=== PATIENT | male | born 1930 | race Caucasian/White ===

== ENCOUNTER 2018-06-27 23:47 | Inpatient (IN) | payer MEDICARE, OTHER ==
[2018-06-28] MEDS ORDERED: Digoxin 0.5 MG/2 ML AMP SLOW IVP PRN (00:55)
[2018-06-28 01:46] LABS: Troponin I 0.027 ng/mL (< 0.028)
[2018-06-28] MEDS ORDERED: Acetaminophen 325 MG TAB PO PRN ×2 (03:14→03:50)
[2018-06-28] MEDS ORDERED: Ondansetron ODT 4 MG TAB SL PRN (03:14)
[2018-06-28] MEDS ORDERED: Ondansetron PF 4 MG/2 ML Vial IVP PRN ×2 (03:14→03:50)
[2018-06-28 03:33] VITALS: BMI 19.2
[2018-06-28] MEDS ORDERED: Prevnar 13-Val Conj/PF 0.5 ML SYRINGE IM ONE (03:45)
[2018-06-28] MEDS ORDERED: cloNIDine 0.1 MG TAB PO PRN (03:50)
[2018-06-28] MEDS ORDERED: Bisacodyl 10 MG SUPP PR PRN (03:50)
[2018-06-28] MEDS ORDERED: Benzonatate 100 MG CAP PO PRN (03:50)
[2018-06-28] MEDS ORDERED: Diabetic Tussin 200 MG/10 ML UDCUP PO PRN (03:50)
[2018-06-28] MEDS ORDERED: Bisacodyl 5 MG TAB PO PRN (03:50)
[2018-06-28] MEDS ORDERED: Nitroglycerin 0.4 MG TAB (25 Tab Bottle) SL PRN (03:50)
[2018-06-28] MEDS ORDERED: Senokot S 8.6-50 MG TAB PO PRN (03:50)
[2018-06-28] MEDS ORDERED: hydrALAZINE 20 MG/ML VIAL SLOW IVP PRN (03:50)
--- NOTE | 2018-06-28 05:49 | HP ---
PRIMARY CARE PHYSICIAN: Donnie Colon MD CHIEF COMPLAINT: 1. Chest discomfort. 2. Shortness of breath. HISTORY OF PRESENTING ILLNESS: Mr. Farias is a very pleasant 88-year-old male with past medical history of hypertension, dyslipidemia, and aortic abdominal aneurysm status post repair, who presented to [facility] with above-mentioned complaints. History is mainly obtained by the patient himself and electronic medical records have been reviewed. Case has been discussed with admitting ER physician. Mr. Farias reports that he has been in his usual health up until last evening. He had sudden onset of chest discomfort associated with shortness of breath. His pain was mostly localized in the substernal area. He denies any palpitations per se. He denies any orthopnea or PND. No recent sick contacts. He denies any fever or chills. He denies any similar symptoms in the past. His pain was going up to his neck and progressively got worse. When he presented to the emergency room, he was found to be in atrial fibrillation with rapid ventricular rate at 120 beats per minute. His 12-lead EKG done in [facility] showed atrial fibrillation with RVR and left atrial enlargement. He was given 1 mg/kg of Lovenox along with 325 mg of aspirin and 50 mg of oral metoprolol succinate as well as two IV pushes of 5 mg of metoprolol tartrate. He was transferred to our facility for further management. In our emergency room, his blood pressure was on the lower side 90/61, so he received 500 to 1000 mL IV fluids. His chest x-ray has already shown mild pulmonary vascular congestion and his BNP was mildly elevated in [facility] at 255. His serum troponin is 0.027 and he is otherwise hemodynamically stable. Currently, he is in atrial fibrillation, but his heart rate is under control in the 80s. He is being admitted for further evaluation and treatment. He also was found to have an elevated D-dimer for which he underwent a CT angio. It is negative for any pulmonary embolism, but does show chronic emphysematous changes. Please note that the patient smokes cigars 7 to 8 per week. PAST MEDICAL HISTORY: 1. Hypertension. 2. Dyslipidemia. 3. History of AAA status post repair. 4. GERD. 5. Osteoarthritis. PAST SURGICAL HISTORY: 1. AAA repair. 2. Past surgery x3. 3. Tonsillectomy. 4. Inguinal hernia repair. 5. Cholecystectomy. ALLERGIES: NO KNOWN MEDICATION ALLERGIES. SOCIAL HISTORY: He is and lives at home with his family. No history of drug or alcohol abuse. Smokes up to 8 cigars per week. FAMILY HISTORY: Significant for lung cancer in his father. His mother had heart disease, but she in her 80s. ALLERGIES: NO KNOWN MEDICATION ALLERGIES. CURRENT MEDICATIONS: Have not been updated yet. Listed in the emergency room record: 1. [place] p.r.n. 2. Omeprazole 20 mg daily. 3. Amlodipine 10 mg daily. 4. Simvastatin 10 mg daily. 5. Diazepam 5 mg b.i.d. p.r.n. 6. Gabapentin 100 mg three times a day. REVIEW OF SYSTEMS: A 12-point review of systems is done and is negative except for those mentioned in history and physical. LABORATORY DATA: CBC shows WBCs of 12.3 with 79% neutrophils, hemoglobin is 13.3, and platelet count of 75. 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 D-dimer is 3.79. Serum chemistry showed blood sugar 125, AST 36, otherwise unremarkable. Troponin 0.027. BNP of 255. CODE STATUS: Full code discussed with the patient. PHYSICAL EXAMINATION: VITAL SIGNS: Most recent vital signs; temperature 97, pulse of 75, respirations 18, saturating 99% on 3 liters nasal cannula, blood pressure 99/55. GENERAL: No acute distress. He was found asleep and I had to wake him up. He is otherwise in no acute distress. Awake, alert, oriented when woken up. HEENT: Mucous membrane is moist and pink. No oropharyngeal exudate or erythema. Head is normocephalic and atraumatic. Pupils are equal, reactive to light and accommodation. NECK: Supple without any lymphadenopathy, JVD, or bruit. CHEST: Clear to auscultation without any wheezing, rales, rhonchi. CARDIAC: He has irregularly irregular rhythm without any tachycardia. No specific murmurs heard. ABDOMEN: Soft, nontender, and nondistended with positive bowel sounds. EXTREMITIES: Free of any cyanosis, clubbing, or edema. NEUROLOGICAL: Examination is nonfocal. SKIN: Free of any rashes or bruises. Feels warm and dry to touch. PSYCHIATRIC: Normal affect. ASSESSMENT AND PLAN: 1. New onset atrial fibrillation with rapid ventricular rate. His rate has been under adequate control for now. Given his soft blood pressure, we will avoid the use of beta bruna or calcium channel blockers. If his heart rate trends up; we will use digoxin. For now, he will be admitted to telemetry unit and we will get an echocardiogram and consult Cardiology for further management. I will also continue him on b.i.d. dosing of 1 mg/kg of Lovenox given his high CHADS2-VASc score of 3, given the male sex, age over 75, and history of hypertension. Monitor platelets as he has low platelets to start with. Continue to trend serial cardiac enzymes. Avoid any further fluid resuscitation given mildly elevated BNP and pulmonary vascular congestion. 2. Thrombocytopenia. This appears to be chronic in nature without any clear etiology. 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 We will monitor closely as the patient is on anticoagulation. 3. Hypertension, currently on the lower side. We will hold his antihypertensives for now and only use p.r.n. medications if the blood pressure is above a certain number. 4. History of dyslipidemia. Reconcile home medications. 5. Code status. Full code discussed with the patient. 6. Deep venous thrombosis and gastrointestinal prophylaxis. DISPOSITION: Mr. Farias is currently being admitted to telemetry unit for new onset of atrial fibrillation with RVR. Estimated length of stay at this time is at least 2 to 3 midnights. It really depends upon his clinical course and recommendation from Cardiology and echocardiogram results. Job ID: [id number]
[2018-06-28 06:01] LABS: Troponin I 0.031 ng/mL (< 0.028)
[2018-06-28] MEDS: Enoxaparin Sodium 60 MG/0.6 ML SYRINGE SC SCH ×3 (07:28→21:13)
[2018-06-28] MEDS ORDERED: Famotidine 20 MG TAB PO SCH (09:00)
[2018-06-28] MEDS ORDERED: Morphine 4 MG/ML VIAL SLOW IVP SCH (10:30)
--- NOTE | 2018-06-28 11:07 | PRG ---
DATE OF SERVICE: 06/28/2018 SUBJECTIVE: The patient is doing significantly better. He still has some chest discomfort when he takes deep breath in. This is located in the mid portion of the upper chest. His shortness of breath is not present, but overall, he feels much better. OBJECTIVE: VITAL SIGNS: Blood pressure is 88/51, temperature is 97.5, pulse is 70, respiratory rate is 16, and O2 saturation is 94 on 2 L by nasal cannula. HEENT: Head is atraumatic and normocephalic. Eyes are PERRLA. Sclerae are nonicteric. Oral mucosa is moist. NECK: Supple. LUNGS: Clear. HEART: S1 and S2. Irregularly irregular. No S3. No S4. ABDOMEN: Soft, nontender, and nondistended. EXTREMITIES: No clubbing, cyanosis, or edema. Peripheral pulses diminished on both tibialis posterior and dorsalis pedis arteries. His both feet are relatively cold to touch. NEUROLOGIC: He is alert and oriented x4. There are no any sensory or motor deficits present. Cranial nerves are intact. LABORATORY DATA: Second troponin is 0.031. IMPRESSION: 1. Acute onset of atrial fibrillation with rapid ventricular response, currently rate controlled. 2. Hypotension, that is most likely related to his medications he received for treatment for #1. 3. Thrombocytopenia. 4. Hypertension per history. 5. Dyslipidemia. PLAN: The patient is going to have additional bolus of normal saline 250. We are waiting for gasoline catalyst operator to evaluate the patient. He will have echocardiogram and additional set of troponins. For now, his heart rate is controlled and will continue on digoxin, and he will continue on Lovenox 60 mg q.12, and I am going to hold his metoprolol since he is hypotensive. Job ID: [id number]
[2018-06-28 19:55] VITALS: BP 112/66; TEMP 97.3
[2018-06-28] MEDS ORDERED: Atorvastatin Calcium 20 MG TAB PO SCH (21:00)
--- NOTE | 2018-06-29 13:27 | CON ---
DATE OF CONSULTATION: HISTORY OF PRESENT ILLNESS: The patient is an 88-year-old gentleman, who presented with shortness of breath and dyspnea. The patient has no previous cardiac history. He has had previous history of an aortic aneurysm resection. The patient was in his usual state of health when he developed acute shortness of breath. He states that whenever he took a deep breath, he would notice having discomfort that would radiate from the middle of his chest up to his neck. The pain only occurred every time he took a deep breath. The patient presented to the local emergency room and was noted to be in rapid irregular heart rhythm. The patient denied having any palpitations. The patient denied having any previous chest discomfort or dyspnea. PAST MEDICAL HISTORY: 1. Hypertension. 2. Dyslipidemia. 3. History of aortic aneurysm. PAST SURGICAL HISTORY: Cholecystectomy, hernia surgery, tonsillectomy, aortic aneurysm repair, and three back surgeries. ALLERGIES: NO KNOWN DRUG ALLERGIES. SOCIAL HISTORY: The patient does smoke cigars. MEDICATIONS: 1. Omeprazole 20 daily. 2. Norvasc 10 daily. 3. Zocor 10 daily. 4. Gabapentin 100 t.i.d. REVIEW OF SYSTEMS: 10-point systems otherwise unremarkable. PHYSICAL EXAMINATION: GENERAL: Thin gentleman, in no acute distress. VITAL SIGNS: Blood pressure of 99/55. NECK: Showed elevated jugular venous distention. LUNGS: Clear to auscultation. HEART: Regular rate and rhythm with a normal S1 and S2. 2/6 systolic murmur EXTREMITIES: Showed no edema. SKIN: Warm and dry. NEUROLOGIC: Nonfocal. VASCULAR: Radial pulse is 2+. LABORATORY RESULTS: White blood cell count is 12.3, hemoglobin 13.3, hematocrit is 38.4, platelets were 75. Sodium is 136, potassium is 4.4, chloride 102, bicarbonate 23, BUN 15, creatinine is 0.98, glucose is 125, troponin 0.131. BNP was 255. His EKG revealed atrial fibrillation with rapid ventricular response. IMPRESSION: 1. New onset atrial fibrillation. 2. Chest pain suggestive of pleurisy. 3. Hypertension. 4. History of abdominal aortic aneurysm. 5. Thrombocytopenia. 6. Tobacco abuse. 7. Dyslipidemia. This gentleman presents with atypical chest pain which is clearly associated with deep inspiration. The patient does have new onset atrial fibrillation, and has a markedly elevated CHADS-Vasc score. The patient does have thrombocytopenia. We will probably recommend he be on a low-dose NOAC considering his age and weight. We will check the patient's echocardiogram. We will follow this patient with you through his hospitalization. Job ID: [id number] MTDD
--- NOTE | 2018-06-29 17:14 | DIS ---
DATE OF ADMISSION: 06/28/2018 DATE OF DISCHARGE: 06/28/2018 STORE GROCERY MERCHANDISER: Dr. Diaz Roy, Cardiology Service. FINAL DIAGNOSES: 1. New onset atrial fibrillation with rapid ventricular rate. 2. Thrombocytopenia. 3. Cardiomyopathy with LVEF of 20% to 25%. 4. Nmunuwfg-lv-sojbaq aortic stenosis. 5. Moderate mitral regurgitation. 6. Severe tricuspid regurgitation. 7. Hypotension, asymptomatic. 8. Hypertension per history. 9. Dyslipidemia. HOSPITAL COURSE: The patient is an 88-year-old male with past medical history of hypertension; dyslipidemia; and aortic abdominal aneurysm, status post repair, who presented to [place] [facility] with the chest discomfort and shortness of breath. He was in his usual state of health when suddenly he had onset of chest discomfort associated with shortness of breath. The pain was mostly localizing to the substernal area. He denied any palpitations. He denied any orthopnea or PND. No recent sick contacts. He denied any fever or chills. He denied any similar symptoms in the past. The pain was going up to his neck and progressively got worse. He was found to be in atrial fibrillation with RVR at 120 beats per minute while in the emergency room in [place]. A 12-lead EKG showed atrial fibrillation with RVR and left atrial enlargement. He was given 1 mg/kg of Lovenox along with 325 mg of aspirin and 50 mg of oral metoprolol succinate as well as two IV pushes of 5 mg of metoprolol tartrate. He was transferred to the [facility] in [place]. His blood pressure is running low 90/60s. He received fluid bolus. His chest x-ray showed mild pulmonary vascular congestion and his BNP was elevated at 255. His serum troponin was 0.025, but otherwise he was hemodynamically stable. His heart rate went down to the 80s and he got admitted to the hospital. Since his D-dimers were elevated, he underwent a CT angiogram, which was negative for pulmonary embolism, which showed chronic emphysematous changes. The patient was monitored on telemetry floor. His [id number] score was 3. He had thrombocytopenia. It was not clear whether this was chronic or acute. We avoided further fluid resuscitation and with blood pressure running in the mid 80s, he was not showing any symptoms. He was comfortably resting in his bed. The patient was seen by Dr. Ryo for Cardiology evaluation. He agreed with the regimen and after he read the echocardiogram, which showed ejection fraction of the left ventricle estimated 20% to 25%, left ventricle mildly size increased with left atrium moderately dilated and zwaeafim-ge-gvbcub aortic stenosis along with moderate mitral regurgitation and severe tricuspid regurgitation. He recommended to transfer the patient to higher level of care [facility] in [place]. The arrangements were made and the patient was transferred to this facility. Job ID: [id number]
--- NOTE | 2018-07-02 13:27 | EKG ---
Test Reason : AFIB Blood Pressure : / mmHG Vent. Rate : 083 BPM Atrial Rate : 084 BPM P-R Int : 000 ms QRS Dur : 104 ms QT Int : 410 ms P-R-T Axes : 000 -25 -17 degrees QTc Int : 481 ms Atrial fibrillation Prolonged QT Abnormal ECG Confirmed by MELODY ZAYAS DO ([id number]), design editor MARLYN ZUNIGA ([id number]) on 07/02/2018 1:26:57 PM Referred By: Confirmed By:MELODY ZAYAS DO
== END 2018-06-28 00:55 | disposition short-term general hospital (02) | DRG 310 ==
LOC: ERS 23:47 → 2NO 06-28 00:54
PROVIDERS: ADMIT Internal Medicine; ATTEND Internal Medicine
PROC: B24BZZ4 Ultrasonography of Heart with Aorta, Transesophageal (ICD-10-PCS; principal; 2018-06-28)
DX: I48.91 Unspecified atrial fibrillation (principal); D69.6 Thrombocytopenia, unspecified; I11.9 Hypertensive heart disease without heart failure; I43 Cardiomyopathy in diseases classified elsewhere; I35.0 Nonrheumatic aortic (valve) stenosis; I36.1 Nonrheumatic tricuspid (valve) insufficiency; I34.0 Nonrheumatic mitral (valve) insufficiency; I95.9 Hypotension, unspecified; E78.5 Hyperlipidemia, unspecified; Z23 Encounter for immunization
CPT/HCPCS: 36415; 84484; 90471; 90670; 93005; 93306; 94760; 96360; G0009; J1650; J2270

== ENCOUNTER 2018-08-22 11:49 | Inpatient (IN) | payer MEDICARE, OTHER ==
[2018-08-22 12:59] LABS: ALT (SGPT) 21 U/L (8-55); AST (SGOT) 39 U/L (5-34); Albumin 2.9 g/dL (3.4-4.8); Alkaline Phosphatase 119 U/L (40-150); Anion Gap 15 mmol/L (10-20); BUN (Urea Nitrogen) 37 mg/dL (8.4-25.7); Bilirubin, Total 1.1 mg/dL (0.2-1.2); Calc. Creatinine Clearance 0 mL/min (70-130); Calcium 8.4 mg/dL (7.8-10.44); Carbon Dioxide 23 mmol/L (23-31); Chloride 104 mmol/L (98-107); Estimated GFR-MDRD 50; Globulin 3.5 g/dL (2.4-3.5); Glucose 117 mg/dL (83-110); Potassium 4.6 mmol/L (3.5-5.1); Protein, Total 6.4 g/dL (5.8-8.1); Sodium 137 mmol/L (136-145)
[2018-08-22 13:08] LABS: #Eosinphils 0.2 thou/uL (0.0-0.7); #Lymphocytes 0.6 thou/uL (1.20-3.40); #Monocytes 0.6 thou/uL (0.11-0.59); #Neutrophils 3.1 thou/uL (1.40-6.50); %Basophils 0.2 % (0.0-1.0); %Eosinophils 4.4 % (0.0-10.0); %Lymphocytes 12.7 % (21.0-51.0); %Monocytes 14.1 % (0.0-10.0); %Neutrophils 68.6 % (42.0-75.0); MDiff Complete? YES; Mean Corpuscular HGB CONC 35.5 g/dL (32.0-36.0); Mean Corpuscular Hemoglobin 36.9 pg (27.0-31.0); Mean Platelet Volume 10.4 fL (7.4-10.4); Platelet Count 45 thou/uL (130-400); Platelet Morphology Comment Appears Decreased; Polychromasia MODERATE = 3-4 cells (100X) (0-2/hpf); RBC Distribution Width 18.8 % (11.5-14.5); Red Blood Cell (RBC) Count 2.44 mill/uL (4.70-6.10); White Blood Cell (WBC) Count 4.5 thou/uL (4.8-10.8)
--- NOTE | 2018-08-22 13:08 | RAD ---
PORTABLE UPRIGHT FRONTAL CHEST RADIOGRAPH: DATE: 08/22/2018. COMPARISON: 06/27/2018. HISTORY: Cough, hypotension. FINDINGS: Postoperative clips overlie the left axillary region. There is no pneumothorax seen. Heart and medi astinal contours are stable. Stent material overlies the cardiac silhouette in the region of the lef t cardiophrenic angle. There is new nonspecific interstitial opacity in bilateral perihilar regions as well as the right bas e, the left mid lung zone centrally, and the medial aspect of the right upper lobe. In addition to t hese new areas of interstitial opacity, there is new mild airspace disease in the left perihilar michelle on and right lung apex/right lung base. IMPRESSION: New interstitial and alveolar opacity noted bilaterally. Findings may signify pulmonary edema. Mult ifocal infectious pneumonitis is a possibility as well. Recommend followup imaging following treatme nt to document resolution. POS: ANDRES
[2018-08-22] MEDS ORDERED: Piperacillin/Tazobactam 4.5 GM VIAL ONE (13:15)
[2018-08-22 13:17] LABS: CKMB 1.4 ng/mL (0-6.6)
[2018-08-22 13:54] LABS: Bilirubin Negative (Negative); Blood, Urine Negative (Negative); Clarity CLEAR (Clear); Glucose, Urine (Dipstick) Negative (Negative); Leukocyte Negative (Negative); Nitrite Negative (Negative); Protein, Urine (Dipstick) Negative (Neg-Trace); Specific Gravity, Urine 1.012 (1.002-1.036); pH, Urine 5.5 (5.0-9.0)
[2018-08-22] MEDS ORDERED: HYDROcodone/Acetaminophen 10/325 mg Tablet ONE (17:32)
[2018-08-22 18:15] LABS: CKMB 1.6 ng/mL (0-6.6)
[2018-08-22] MEDS ORDERED: Ondansetron PF 4 MG/2 ML Vial IVP PRN (20:54)
[2018-08-22] MEDS ORDERED: Ondansetron ODT 4 MG TAB PO PRN (20:54)
[2018-08-22] MEDS ORDERED: Acetaminophen 650 MG Suppository PR PRN (20:54)
[2018-08-22] MEDS ORDERED: Acetaminophen 325 MG TAB PO PRN (20:54)
[2018-08-22] MEDS ORDERED: Senokot S 8.6-50 MG TAB PO PRN (20:54)
[2018-08-22] MEDS: Atorvastatin Calcium 20 MG TAB PO SCH (22:13)
[2018-08-22] MEDS: Apixaban 2.5 MG TAB PO SCH (22:13)
[2018-08-22] MEDS: Piperacillin/Tazobactam 4.5 GM in Sodium Chloride 0.9% 100 ML IVPB SCH (22:14)
[2018-08-22] MEDS: HYDROcodone/Acetaminophen 10/325 mg Tablet PO PRN (22:14)
--- NOTE | 2018-08-23 01:49 | HP ---
PRIMARY CARE PHYSICIAN: Donnie Colon MD CHIEF COMPLAINT: Low blood pressure. HISTORY OF PRESENT ILLNESS: This is an 88-year-old white male, who we saw on here last month for new onset atrial fibrillation with rapid ventricular rate. He was noted to have niimquca-uc-wgxsem aortic stenosis with some borderline blood pressures and was transferred to [facility] in [place] for aortic valve replacement. There, he had cardiac cath, which was noted to have two-vessel disease, he had a stent placed and then was discharged home and came back in a couple of weeks later and had his valve replacement. The patient was noted to have some problems with rate control of his atrial fibrillation and low blood pressures in the hospital. He also got severely swollen in the hospital and had to be diuresed and eventually discharged home. The patient reports he has actually been doing better since he got discharged home his swelling has improved. He did develop some pressure ulcers during his hospitalizations on his heels and on his sacrum. These are not getting any worse. Today, his home health nurse came to check on him. His blood pressure was noted to be quite low. He is very tachycardic and they were unable to get a pulse ox reading and so he was sent into the emergency room. In the ER, the patient had variable heart rates between the 110s to 150s. He was also noted to have initially low blood pressures, first one was 88/67. He was given two 500 mL boluses of normal saline and his blood pressures have been in the 90s to 110s since then. The patient was also given a dose of Zosyn and vancomycin in the emergency room. The patient reports that he was nonspecifically feeling bad. He is on oxygen at home and has been for the last couple of weeks due to new diagnosis of COPD. PAST MEDICAL HISTORY: 1. Coronary artery disease, status post stent. 2. Atrial fibrillation, on chronic anticoagulation. 3. Aortic stenosis, status post valve replacement. 4. Hypertension. 5. Dyslipidemia. 6. Abdominal aortic aneurysm, status post repair. 7. Gastroesophageal reflux disease. 8. Osteoarthritis. 9. Chronic pancytopenia, possibly some sort of chronic lymphocytic leukemia, being worked up by Heme-Oncology as an outpatient. PAST SURGICAL HISTORY: 1. TAVR done in July 2018. 2. Abdominal aortic aneurysm repair. 3. Tonsillectomy. 4. Inguinal hernia repair. 5. Cholecystectomy. 6. Small-bowel obstruction surgery. 7. Cardiac stent. SOCIAL HISTORY: The patient is , lives with his . He smoked up to eight cigars per week until his hospitalizations. No alcohol or illicit drug use. FAMILY HISTORY: Significant for lung cancer in his father and mother with heart disease. ALLERGIES: NO KNOWN DRUG ALLERGIES. CURRENT MEDICATIONS: 1. [place] 10/325 mg every 6 hours as needed for pain. 2. Bumex 1 mg daily. 3. Flomax 0.4 mg daily. 4. Eliquis 2.5 mg twice a day. 5. Aspirin 81 mg daily. 6. Metoprolol tartrate 25 mg twice a day, currently on hold. 7. Atorvastatin 20 mg daily, currently on hold. 8. Potassium chloride 10 mEq daily. 9. Sertraline 25 mg daily, currently on hold. 10. Magnesium oxide 100 mg daily. REVIEW OF SYSTEMS: CONSTITUTIONAL: No fevers, no chills. He has some generalized weakness, that has actually been improving a little bit. EYES: No double vision or blurred vision. ENT: No congestion, drainage, or sore throat. CARDIOVASCULAR: No chest pain. No palpitations or racing heart. PULMONARY: No coughing, wheezing, or shortness of breath. GASTROINTESTINAL: No abdominal pain. He had some nausea few days ago that resolved with Zofran that he had in the house. Since then, no vomiting. No diarrhea or constipation. GENITOURINARY: No dysuria or hematuria. MUSCULOSKELETAL: He has some low back pain. SKIN: See HPI about pressure ulcers. NEUROLOGIC: No numbness, tingling, or focal weakness. PHYSICAL EXAMINATION: VITAL SIGNS: Blood pressure 115/66, pulse 110, respirations 18, temperature 97.9, O2 saturation 91% on 3 L of oxygen. HEENT: Pupils are equal, round, and reactive to light. Oropharynx clear without lesions, erythema, or exudate. NECK: Supple. No lymphadenopathy. No thyroid nodules or enlargement. No JVD. HEART: Irregularly irregular rhythm, mildly tachycardic. No significant murmurs. LUNGS: He has some anterior crackles on the left lung, otherwise good air movement throughout. ABDOMEN: Soft, nontender to palpation. Normoactive bowel sounds. No hepatosplenomegaly or other masses. EXTREMITIES: No clubbing, cyanosis, or edema. SKIN: The patient has some stage II pressure ulcers on bilateral heels and stage I pressure ulcer on his sacrum. NEUROLOGIC: The patient has intact strength and sensation in all extremities. He does have some generalized weakness, but no focal issues. PSYCHIATRIC: Alert and oriented x3, normal mood and affect. LABORATORY DATA: White blood cell count 4.5; hemoglobin 9.0, down from 13 before his surgery; hematocrit 25.4; platelet count 45, down from 75 before surgery. Complete metabolic panel notable for BUN of 37; creatinine of 1.35, which is up from his baseline of 0.8; glucose of 117. AST of 39, albumin of 2.9. The remainder of the CMP was normal. Lactic acid was negative. Brain natriuretic peptide was 877, up from 255 at end of last year. Troponin was indeterminate at 0.125, recheck was 0.102. Urinalysis was negative for infection. Chest x-ray, I did review the chest x-ray along with the radiologist's report, it did show some new interstitial and alveolar opacities noted bilaterally. Findings may signify pulmonary edema versus multifocal infectious pneumonitis. EKG done in the emergency room shows atrial fibrillation with rapid ventricular response and a complete left bundle-branch block. ASSESSMENT: 1. Atrial fibrillation with rapid ventricular rate. The patient's blood pressure is running low normal and was little hypertensive when he first came in, difficult to control his atrial fibrillation. In fact, it had been running not too out of control, mostly in the low 100s since he has been here. We will consider adding some digoxin. We will get Cardiology consultation and ask their advice on better controlling this in the setting of his low blood pressures. 2. Hypotension, resolved with fluids. The patient's creatinine is actually elevated beyond what it was previously. This may reflect some injury from contrast during his recent hospital stays and catheterizations and his valve replacement, but more likely represents some dehydration from overdiuresis with his Bumex, and as it resolved with fluid administration. I am now going to resume his Bumex, however , concerning not wanting him to get into congestive exacerbation given his significantly elevated BNP and a recent history of congestive heart failure exacerbation during his recent hospitalization. 3. Indeterminate troponins, possible non-ST elevation myocardial infarction versus a troponin leak from the patient's atrial fibrillation with rapid ventricular rate. We will trend troponins. Dr. Cheatham is being consulted. 4. Hypoxia with interstitial changes on chest x-ray. The patient's chest x-ray could be pulmonary edema, however, given his actual improvement in his overall volume status and has dry-appearing kidney numbers, I am more suspicious of some sort of infectious pneumonitis. The patient has been given antibiotics in the emergency room. 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 We will continue antibiotics for now. We will consult Pulmonology for assistance. The patient is requiring 3 L of oxygen at this time, he has been on that for a couple of weeks now. 5. Coronary artery disease. 6. Pancytopenia with significant thrombocytopenia. We will consult Heme- Oncology. They believe they have gotten [facility]. 7. Gastroesophageal reflux disease. We will put the patient on Pepcid twice a day. 8. Deep venous thrombosis prophylaxis. We will continue the patient's Eliquis for atrial fibrillation. 9. Code status. I did discuss this with the patient and his . He is a full code. Should he be incapacitated, his would be his medical decision maker , her name is Ursula Farias. Job ID: [id number] MTDD
[2018-08-23] MEDS: Piperacillin/Tazobactam 4.5 GM in Sodium Chloride 0.9% 100 ML IVPB SCH ×2 (03:46→09:18)
[2018-08-23] MEDS: HYDROcodone/Acetaminophen 10/325 mg Tablet PO PRN ×4 (03:47→20:06)
[2018-08-23 06:11] LABS: Anion Gap 14 mmol/L (10-20); BUN (Urea Nitrogen) 34 mg/dL (8.4-25.7); Calc. Creatinine Clearance 35 mL/min (70-130); Calcium 8.7 mg/dL (7.8-10.44); Carbon Dioxide 23 mmol/L (23-31); Chloride 105 mmol/L (98-107); Estimated GFR-MDRD 52; Glucose 75 mg/dL (83-110); Potassium 4.6 mmol/L (3.5-5.1); Sodium 137 mmol/L (136-145)
[2018-08-23 07:17] LABS: Hemoglobin 8.9 g/dL (14.0-18.0); Mean Corpuscular HGB CONC 32.5 g/dL (32.0-36.0); Mean Corpuscular Hemoglobin 34.3 pg (27.0-31.0); Mean Platelet Volume 11.1 fL (7.4-10.4); Platelet Count 43 thou/uL (130-400); RBC Distribution Width 19.2 % (11.5-14.5); White Blood Cell (WBC) Count 4.5 thou/uL (4.8-10.8)
[2018-08-23 07:23] LABS: #Eosinphils 0.3 thou/uL (0.0-0.7); #Lymphocytes 0.6 thou/uL (1.20-3.40); #Monocytes 0.6 thou/uL (0.11-0.59); #Neutrophils 2.9 thou/uL (1.40-6.50); %Basophils 0.6 % (0.0-1.0); %Eosinophils 7.1 % (0.0-10.0); %Lymphocytes 13.8 % (21.0-51.0); %Monocytes 14.1 % (0.0-10.0); %Neutrophils 64.4 % (42.0-75.0); MDiff Complete? YES; Macrocytosis MODERATE=16-30 cells (100X) (0-5/hpf); Platelet Morphology Comment Appears Decreased; Polychromasia SLIGHT = 2-3 cells (100X) (0-2/hpf)
--- NOTE | 2018-08-23 08:24 | PDOC.PN ---
- Subjective Encounter Start Date: 08/23/18 Encounter Start Time: 11:20 Subjective: Patient doesn't feel too bad. No SOB on oxygen. No chest pain. Heart rate -: has remained elevated overnight. - Objective Resuscitation Status - Order Detail: 08/22/18 18:23 Resuscitation Status Routine Resuscitation Status: FULL: Full Resuscitation Discussed with: Timoteo RAO Reviewed: Yes Vital Signs & Weight: Vital Signs (12 hours) Temp Pulse Resp BP Pulse Ox 08/23/18 04:00 97.4 F L 125 H 20 95/59 L 94 L 08/23/18 00:00 97.4 F L 119 H 20 114/77 96 Weight Weight 134 lb 6.4 oz I&O: 08/22/18 08/23/18 08/24/18 06:59 06:59 06:59 Intake Total 380 Output Total 150 Balance 230 Result Diagrams: 08/23/18 05:23 08/23/18 05:23 Phys Exam - Physical Examination Constitutional: NAD HEENT: moist MMs diffuse crackles throughout, front and back, no increased WOB Cardiovascular: no significant murmur, irregular Gastrointestinal: soft, positive bowel sounds Musculoskeletal: no edema Neurological: non-focal, moves all 4 limbs Psychiatric: normal affect, A&O x 3 Dx/Plan (1) Atrial fibrillation with RVR Code(s): I48.91 - UNSPECIFIED ATRIAL FIBRILLATION Status: Chronic (2) Hypotension Status: Resolved Comment: resolved with fluids in the ER (3) Acute renal failure Status: Acute Comment: unchanged after fluids in ER, unknown what creatinine has been running since his surgery (4) Acute and chronic respiratory failure with hypoxia Code(s): J96.21 - ACUTE AND CHRONIC RESPIRATORY FAILURE WITH HYPOXIA Status: Acute Comment: saturating ok on 2-3 liters which he has been on at home for the past couple weeks, chest x-ray could be pulmonary edema vs. bilateral pneumonia (5) Pneumonia Code(s): J18.9 - PNEUMONIA, UNSPECIFIED ORGANISM Status: Acute Comment: on Zosyn and Vancomycin since 08/22/2018 (6) NSTEMI (non-ST elevated myocardial infarction) Code(s): I21.4 - NON-ST ELEVATION (NSTEMI) MYOCARDIAL INFARCTION Status: Acute Comment: Troponin stable in indeterminate range (7) CAD (coronary artery disease) Code(s): I25.10 - ATHSCL HEART DISEASE OF [place] CORONARY ARTERY W/O ANG PCTRS Status: Chronic (8) Pancytopenia Code(s): D61.818 - OTHER PANCYTOPENIA Status: Acute (9) GERD (gastroesophageal reflux disease) Code(s): K21.9 - GASTRO-ESOPHAGEAL REFLUX DISEASE WITHOUT ESOPHAGITIS Status: Chronic (10) S/P TAVR (transcatheter aortic valve replacement) Code(s): Z95.2 - PRESENCE OF PROSTHETIC HEART VALVE Status: Chronic - Plan cont current plan of care, continue antibiotics, PT/OT, DVT proph w/SCDs Cardiology and pulmonology consults pending * . - Discharge Day Encounter end time: 11:30
[2018-08-23] MEDS: Apixaban 2.5 MG TAB PO SCH ×2 (08:34→20:06)
[2018-08-23] MEDS: Potassium Chloride 10 MEQ TAB PO SCH (08:34)
[2018-08-23] MEDS: Tamsulosin HCl 0.4 MG CAP PO SCH (08:34)
[2018-08-23] MEDS: Aspirin 81 mg Enteric Coated Tablet PO SCH (08:35)
[2018-08-23] MEDS: Famotidine 20 MG TAB PO SCH (08:35)
[2018-08-23] MEDS: Magnesium Oxide 400 MG TAB PO SCH (08:35)
[2018-08-23] MEDS ORDERED: Bumetanide 1 MG TAB PO SCH (09:00)
[2018-08-23 12:41] VITALS: BMI 19.3
[2018-08-23] MEDS ORDERED: Vancomycin HCl 750 MG in Sodium Chloride 0.9% 250 ML 250 ML IVPB SCH (14:00)
[2018-08-23] MEDS ORDERED: Furosemide 40 MG/4 ML VIAL SLOW IVP SCH (15:30)
[2018-08-23] MEDS: Amiodarone 450 MG in Dextrose 5% in Water 250 ML IVPB SCH (16:45)
--- NOTE | 2018-08-23 17:35 | CON ---
DATE OF CONSULTATION: 08/23/2018 HISTORY OF PRESENT ILLNESS: Mr. Farias is a very pleasant 88-year-old male. His daughter is in the room, is an excellent historian. He has a history of pancytopenia and underwent a biopsy of his bone marrow at [facility]. This did not show lymphoma or leukemia. There were no malignant cells identified in the marrow. There were decreased numbers of red cell platelet and white blood cell precursors noted in the bone marrow. 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 He was admitted with atrial fibrillation. He has been found to have aortic stenosis, last admission. He was admitted and I was consulted. He says he has a diagnosis of COPD, but I am not really sure where this diagnosis came from. He denies ever having pulmonary function tests. He was admitted on June 28 with chest discomfort and shortness of breath. He was only kept overnight, went home on the with a diagnosis of rapid atrial fibrillation. Ejection fraction is 20% to 25% and syosobkj-iy-qekzzk aortic stenosis. Echocardiogram that admission quantitated the aortic valve peak gradient at [address] pulmonary angiogram done on the , which I suspect was prior to his admission on the morning of the showing no thromboembolic disease. Bilateral effusions are seen right greater than left, consistent with his aortic stenosis. He did have pneumobilia on his CT scan. PAST MEDICAL HISTORY: Remarkable for collagenous colitis, hypertension, and reflux disease. Additional past medical history includes history of coronary stenting ands aortic stenosis status, post valve replacement, which I presume was a TAVR. PAST SURGICAL HISTORY: Three back surgeries, tonsillectomy, aortic aneurysm repair, cholecystectomy, and inguinal herniorrhaphy. SOCIAL HISTORY: He is nonsmoker and nondrinker. FAMILY HISTORY: Negative for lung disease in early age. REVIEW OF SYSTEMS: Ten point review of systems completed, otherwise negative. He says he feels much better and he felt yesterday. He was admitted with low blood pressure and shortness of breath. PHYSICAL EXAMINATION: GENERAL: He is in no distress, sitting in a bedside chair. VITAL SIGNS: He is afebrile. Heart rate is 113 to 133 this morning. Respiratory rates in the 20s, oximetry is 96%, O2 is at 4 L nasal cannula, and blood pressure has been as low as 94 systolic this morning as high as 117 systolic. HEENT: Pupils are equal. Sclerae are anicteric. He has temporal muscle wasting. NECK: Supple. LUNGS: Remarkable for fine crackles at his bases. HEART: Regular rate and rhythm. S1 and S2 are audible. ABDOMEN: Soft and nontender. EXTREMITIES: Warm without edema. LABORATORY DATA: White count 4.5, hemoglobin 8.9, platelets 43,000. Electrolytes are unremarkable. BUN 34 and creatinine 1.31. DIAGNOSTIC DATA: Chest radiograph shows diffuse infiltrates. IMPRESSION: 1. Pulmonary edema. I feel this is more likely than pneumonia. He is afebrile. He can be switched to p.o. antimicrobial therapy in my opinion. If he had bilateral pneumonia, would be more likely that he would have gotten worse overnight instead of better. 2. Atrial fibrillation, rate controlled. It is probably the biggest issue at hand. Deconditioning is also an issue. 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 3. Hematology has been consulted. We will follow the other physicians caring for him. TIME SPENT: 50-minute consult, with greater than 50% of the time spent on the unit coordinating care. Job ID: [id number] MTDD
[2018-08-23 17:41] LABS: ALT (SGPT) 17 U/L (8-55); AST (SGOT) 31 U/L (5-34); Albumin 2.8 g/dL (3.4-4.8); Alkaline Phosphatase 107 U/L (40-150); Bilirubin, Direct 0.5 mg/dL (0.1-0.3); Magnesium 1.9 mg/dL (1.6-2.6); Protein, Total 6.5 g/dL (5.8-8.1)
--- NOTE | 2018-08-23 17:46 | CON ---
DATE OF CONSULTATION: 08/23/2018 PRIMARY EXCELLENCE LEADER: Diaz Roy MD REASON FOR CONSULTATION: Atrial fibrillation with RVR. HISTORY OF PRESENT ILLNESS: Mr. Farias is a pleasant 88-year-old white gentleman, who comes to the hospital for hypotension. He is a patient of Dr. Roy and evaluated initially in June, at which time he was admitted for what appeared to be heart failure exacerbation. He was found to have an EF of 20% to 25%. He was also found to be in atrial fibrillation and started on full anticoagulation. Echocardiogram revealed kogaiadt-lc-rglmef aortic stenosis, likely severe secondary to low-flow low-gradient aortic stenosis, so he was transferred over to [place] for higher level of care. In [place], he received a heart catheterization and he had a drug-eluting stent placed to the LAD. He was placed on Plavix. A month later, he came back for a planned TAVR in [place] as well. Dr. Resendiz performed the surgery. At that point, he had his Plavix stopped as his platelets dropped from 40s to the 20s, and he was kept on Eliquis and aspirin alone. In talking with Dr. Resendiz, this is the plan for now. He will be chronically on aspirin and Eliquis only due to pancytopenia and worsening thrombocytopenia with addition of Plavix. He was discharged from [facility] on the , sent home on home O2 secondary to him feeling better with oxygen at night and he has been using it pretty much all day long. He was at home today, and the home health nurse came to see him and noted that his blood pressure was low and he was tachycardic, so he was transferred to the emergency room, where he was found to be in atrial fibrillation with RVR and heart rate in the 100s to 150s. His blood pressure was in the 80s/60s. He received a total of 1 L of normal saline and his blood pressure improved to the 90s to 110s. He was also given antibiotics and admitted for further evaluation and care. He apparently also has a new diagnosis of COPD, which is questionable at the time. PAST MEDICAL HISTORY: 1. Coronary artery disease, status post stent to the LAD. 2. Atrial fibrillation, on chronic anticoagulation. 3. Aortic stenosis, status post transcutaneous aortic valve replacement. 4. Hypertension. 5. Hyperlipidemia. 6. Abdominal aortic aneurysm, status post repair. 7. GERD. 8. Osteoarthritis. 9. 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 SURGICAL HISTORY: 1. TAVR in July of 2018. 2. Abdominal aortic aneurysm repair several years ago. 3. Tonsillectomy. 4. Inguinal hernia repair. 5. Cholecystectomy. 6. Small bowel obstruction surgery. 7. LAD drug-eluting stent in mid June. SOCIAL HISTORY: Continues to smoke. No alcohol or drug use. FAMILY HISTORY: Lung cancer in father. Mother with heart disease. ALLERGIES: NO KNOWN DRUG ALLERGIES. OUTPATIENT MEDICATIONS: 1. [place] p.r.n. 2. Bumex 1 mg a day. 3. Flomax 0.4 mg a day. 4. Eliquis 2.5 mg twice a day. 5. Aspirin 81 a day. 6. Metoprolol tartrate 25 mg twice a day. 7. Atorvastatin 20 mg at bedtime. 8. Potassium chloride. 9. Sertraline. 10. Magnesium oxide. REVIEW OF SYSTEMS: A 12-point review of systems was done and was found to be negative unless stated in the history of present illness. PHYSICAL EXAMINATION: VITAL SIGNS: Temperature 97.0, pulse anywhere from 106 to 150, respiratory rate of 24, saturating 96% on 4 L nasal cannula, and blood pressure 105/68. GENERAL: Awake, alert, and oriented x3, in mild respiratory distress. HEENT: Normocephalic and atraumatic. NECK: Supple. LUNGS: Have crackles at the bilateral bases. CARDIOVASCULAR: S1, S2. There is a grade 2/6 systolic murmur in the right upper sternal border. ABDOMEN: Soft. Positive bowel sounds. EXTREMITIES: A 2+ edema. SKIN: Warm and dry. LABORATORY DATA: Laboratory work was reviewed. White count of 4.5, hemoglobin of 8.9, hematocrit of 27, and platelet count of 43. Chemistry is remarkable for creatinine of 1.3 and BUN of 34. GFR was 52. BNP is 877. Troponin I is 0.12, 0.10, and 0.12. Procalcitonin is 0.07. UA was negative. Chest x-ray shows findings consistent with heart failure. ASSESSMENT AND PLAN: 1. Atrial fibrillation with rapid ventricular response. 2. Acute on chronic systolic heart failure. 3. Severe aortic stenosis, status post transcatheter aortic valve replacement. 4. Pancytopenia. 5. Severe thrombocytopenia with Plavix. 6. Drug-eluting stent to the left anterior descending in mid June of 2018, off Plavix, only on aspirin and Eliquis. PLAN: 1. Currently, Mr. Farias has several issues. We will plan on diuresing him with IV Lasix. Hopefully, his blood pressure will maintain. If it does not, we will have to add inotropic support. 2. We will place him on an amiodarone drip to try to slow him down. 3. If his blood pressure remains despite trying to slow him down and diuresis, he will need cardioversion, which he should be able to get without a PENELOPE as he has been on Eliquis for at least the last 2 months. 4. We will repeat echocardiogram to assess valvular structure and LV function. 5. Further recommendations per Dr. Roy, the primary agriculture teacher. Job ID: [id number]
[2018-08-23] MEDS: Atorvastatin Calcium 20 MG TAB PO SCH (20:06)
[2018-08-23] MEDS: Amoxicillin/Potassium Clav 875 MG TAB PO SCH (20:06)
[2018-08-24] MEDS: HYDROcodone/Acetaminophen 10/325 mg Tablet PO PRN ×5 (00:50→23:28)
[2018-08-24] MEDS: Amiodarone 450 MG in Dextrose 5% in Water 250 ML IVPB SCH (01:09)
[2018-08-24 04:59] LABS: Anion Gap 14 mmol/L (10-20); BUN (Urea Nitrogen) 33 mg/dL (8.4-25.7); Calc. Creatinine Clearance 32 mL/min (70-130); Calcium 8.8 mg/dL (7.8-10.44); Carbon Dioxide 26 mmol/L (23-31); Chloride 103 mmol/L (98-107); Estimated GFR-MDRD 46; Glucose 124 mg/dL (83-110); Potassium 4.5 mmol/L (3.5-5.1); Sodium 138 mmol/L (136-145)
[2018-08-24] MEDS: Furosemide 40 MG/4 ML VIAL SLOW IVP SCH ×2 (05:51→14:43)
[2018-08-24 05:58] LABS: Anisocytosis MODERATE=16-30 cells (100X) (0-5/hpf); Band 12 % (5-11); Elliptocytes SLIGHT = 2-5 cells (100X) (0-1/hpf); Eosinophils 6 % (0-10); Hemoglobin 8.8 g/dL (14.0-18.0); Lymphocytes 14 % (21-51); MDiff Complete? YES; Macrocytosis SLIGHT = 6-15 cells (100X) (0-5/hpf); Mean Corpuscular Hemoglobin 34.2 pg (27.0-31.0); Mean Platelet Volume 11.2 fL (7.4-10.4); Monocytes 12 % (0-10); Neutrophil 56 % (42-75); Platelet Count 39 thou/uL (130-400); Platelet Morphology Comment Appears Decreased; RBC Distribution Width 19.4 % (11.5-14.5); Red Blood Cell (RBC) Count 2.56 mill/uL (4.70-6.10); White Blood Cell (WBC) Count 5.3 thou/uL (4.8-10.8)
--- NOTE | 2018-08-24 07:14 | PDOC.PN ---
- Subjective Encounter Start Date: 08/24/18 Encounter Start Time: 08:50 Subjective: Patient reports feeling about the same. Still on oxygen. No fever. No -: cough. Very SOB with activity. - Objective Resuscitation Status - Order Detail: 08/22/18 18:23 Resuscitation Status Routine Resuscitation Status: FULL: Full Resuscitation Discussed with: Patient JALEN Reviewed: Yes Vital Signs & Weight: Vital Signs (12 hours) Temp Pulse Resp BP Pulse Ox 08/24/18 04:30 113 H 16 107/57 L 98 08/24/18 00:30 112 H 16 107/57 L 97 08/23/18 19:25 97.4 F L 111 H 18 115/64 97 Weight Admit Weight 134 lb 3.2 oz Weight 140 lb 3.2 oz I&O: 08/23/18 08/24/18 08/25/18 06:59 06:59 06:59 Intake Total 380 1160 Output Total 150 700 Balance 230 460 Result Diagrams: 08/24/18 03:53 08/24/18 03:53 Phys Exam - Physical Examination Constitutional: NAD HEENT: moist MMs Respiratory: no wheezing, no rhonchi diffuse rales throughout lung garcia Cardiovascular: irregular tachycardic Gastrointestinal: soft, positive bowel sounds Musculoskeletal: no edema Neurological: non-focal, moves all 4 limbs Psychiatric: normal affect, A&O x 3 Dx/Plan (1) Atrial fibrillation with RVR Code(s): I48.91 - UNSPECIFIED ATRIAL FIBRILLATION Status: Chronic Comment: on Amiodarone drip, still tachycardic, may need cardioversion per cardiology, on Eliquis (2) Hypotension Status: Resolved Comment: resolved with fluids in the ER (3) Acute renal failure Status: Acute Comment: unchanged after fluids in ER, unknown what creatinine has been running since his surgery (4) Acute and chronic respiratory failure with hypoxia Code(s): J96.21 - ACUTE AND CHRONIC RESPIRATORY FAILURE WITH HYPOXIA Status: Acute Comment: saturating ok on 2-3 liters which he has been on at home for the past couple weeks, chest x-ray could be pulmonary edema vs. bilateral pneumonia (5) Pneumonia Code(s): J18.9 - PNEUMONIA, UNSPECIFIED ORGANISM Status: Ruled-out Comment: on Zosyn and Vancomycin since 08/22/2018, switched to oral antibiotics Augmentin on 08/23/2018 (6) NSTEMI (non-ST elevated myocardial infarction) Code(s): I21.4 - NON-ST ELEVATION (NSTEMI) MYOCARDIAL INFARCTION Status: Acute Comment: Troponin stable in indeterminate range (7) CAD (coronary artery disease) Code(s): I25.10 - ATHSCL HEART DISEASE OF [place] CORONARY ARTERY W/O ANG PCTRS Status: Chronic (8) Pancytopenia Code(s): D61.818 - OTHER PANCYTOPENIA Status: Acute Comment: Heme/Onc consulted (9) GERD (gastroesophageal reflux disease) Code(s): K21.9 - GASTRO-ESOPHAGEAL REFLUX DISEASE WITHOUT ESOPHAGITIS Status: Chronic (10) S/P TAVR (transcatheter aortic valve replacement) Code(s): Z95.2 - PRESENCE OF PROSTHETIC HEART VALVE Status: Chronic - Plan cont current plan of care, continue antibiotics, PT/OT Attempting heart rate control and diuresis by cardiology as tolerated * . - Discharge Day Encounter end time: 08:50
[2018-08-24] MEDS: Potassium Chloride 10 MEQ TAB PO SCH (08:13)
[2018-08-24] MEDS: Tamsulosin HCl 0.4 MG CAP PO SCH (08:15)
[2018-08-24] MEDS: Amoxicillin/Potassium Clav 875 MG TAB PO SCH ×2 (08:15→21:08)
[2018-08-24] MEDS: Aspirin 81 mg Enteric Coated Tablet PO SCH (08:15)
[2018-08-24] MEDS: Famotidine 20 MG TAB PO SCH (08:15)
[2018-08-24] MEDS: Apixaban 2.5 MG TAB PO SCH ×2 (08:15→21:08)
[2018-08-24] MEDS: Magnesium Oxide 400 MG TAB PO SCH (08:15)
[2018-08-24] MEDS: Digoxin 0.5 MG/2 ML AMP SLOW IVP SCH ×3 (10:26→14:35)
[2018-08-24 13:54] LABS: Vancomycin, Trough 5.3 ug/mL
--- NOTE | 2018-08-24 16:42 | PRG ---
DATE OF SERVICE: 08/24/2018 SUBJECTIVE: Mr. Farias says he is feeling well. OBJECTIVE: VITAL SIGNS: He is afebrile. Heart rate is in the 90s. He did have one heart rate recorded at 113, respiratory rate 16, oximetry is 92% to 95% on 4 L. Blood pressure is 112/56. LUNGS: Remarkable for fine crackles at the bases. HEART: Regular rate and rhythm. ABDOMEN: Soft and nontender. EXTREMITIES: Without edema. Reviewed his PFTs. Two efforts suggested mixed defect, but one effort shows normal mid flows, arguing that this is predominantly a restrictive defect. I suspect it is predominantly a restrictive defect because of deconditioning and muscle weakness. IMPRESSION: 1. Interstitial edema probably would not lead to decreased flows to the degree that I see on his pulmonary function test. 2. Other issues include atrial fibrillation, rapid ventricular response, clinically better on amiodarone. 3. Acute on chronic kidney disease. I doubt he has pneumonia. He has been switched to p.o. antimicrobial therapy and is feeling better each day. We will continue to follow. Job ID: [id number]
[2018-08-24] MEDS: Atorvastatin Calcium 20 MG TAB PO SCH (21:08)
[2018-08-25] MEDS: HYDROcodone/Acetaminophen 10/325 mg Tablet PO PRN ×4 (02:54→20:10)
[2018-08-25] MEDS: Furosemide 40 MG/4 ML VIAL SLOW IVP SCH ×2 (05:57→14:22)
--- NOTE | 2018-08-25 09:04 | PDOC.PN ---
- Subjective Encounter Start Date: 08/25/18 Encounter Start Time: 10:40 Subjective: Patient doing well. No complaints. - Objective Resuscitation Status - Order Detail: 08/22/18 18:23 Resuscitation Status Routine Resuscitation Status: FULL: Full Resuscitation Discussed with: Patient JALEN Reviewed: Yes Vital Signs & Weight: Vital Signs (12 hours) Temp Pulse Resp BP Pulse Ox 08/25/18 08:08 97.8 F 69 18 115/53 L 97 08/25/18 03:34 97.9 F 84 20 110/53 L 92 L Weight Admit Weight 134 lb 3.2 oz Weight 134 lb 12.8 oz I&O: 08/24/18 08/25/18 08/26/18 06:59 06:59 06:59 Intake Total 1160 1520 Output Total 700 425 Balance 460 1095 Result Diagrams: 08/24/18 03:53 08/24/18 03:53 Phys Exam - Physical Examination Constitutional: NAD HEENT: moist MMs Respiratory: no wheezing, no rhonchi diffuse rales unchanged Cardiovascular: irregular rate well controlled this AM Gastrointestinal: soft, positive bowel sounds Neurological: non-focal, moves all 4 limbs Psychiatric: normal affect, A&O x 3 Dx/Plan (1) Atrial fibrillation with RVR Code(s): I48.91 - UNSPECIFIED ATRIAL FIBRILLATION Status: Chronic Comment: tachycardia resolved today after load with digoxin (2) Hypotension Status: Resolved Comment: resolved with fluids in the ER (3) Acute renal failure Status: Acute Comment: unchanged after fluids in ER, unknown what creatinine has been running since his surgery (4) Acute and chronic respiratory failure with hypoxia Code(s): J96.21 - ACUTE AND CHRONIC RESPIRATORY FAILURE WITH HYPOXIA Status: Acute Comment: saturating ok on 2-3 liters which he has been on at home for the past couple weeks, chest x-ray could be pulmonary edema vs. bilateral pneumonia (5) Pneumonia Code(s): J18.9 - PNEUMONIA, UNSPECIFIED ORGANISM Status: Ruled-out Comment: on Zosyn and Vancomycin since 08/22/2018, switched to oral antibiotics Augmentin on 08/23/2018 (6) NSTEMI (non-ST elevated myocardial infarction) Code(s): I21.4 - NON-ST ELEVATION (NSTEMI) MYOCARDIAL INFARCTION Status: Acute Comment: Troponin stable in indeterminate range (7) CAD (coronary artery disease) Code(s): I25.10 - ATHSCL HEART DISEASE OF [place] CORONARY ARTERY W/O ANG PCTRS Status: Chronic (8) Pancytopenia Code(s): D61.818 - OTHER PANCYTOPENIA Status: Acute Comment: Heme/Onc following outpatient (9) GERD (gastroesophageal reflux disease) Code(s): K21.9 - GASTRO-ESOPHAGEAL REFLUX DISEASE WITHOUT ESOPHAGITIS Status: Chronic (10) S/P TAVR (transcatheter aortic valve replacement) Code(s): Z95.2 - PRESENCE OF PROSTHETIC HEART VALVE Status: Chronic - Plan cont current plan of care, continue antibiotics, PT/OT, respiratory therapy Home when ok with cardiology and pulmonology * . - Discharge Day Encounter end time: 10:50
[2018-08-25] MEDS: Aspirin 81 mg Enteric Coated Tablet PO SCH (09:07)
[2018-08-25] MEDS: Potassium Chloride 10 MEQ TAB PO SCH (09:07)
[2018-08-25] MEDS: Amoxicillin/Potassium Clav 875 MG TAB PO SCH ×2 (09:07→20:11)
[2018-08-25] MEDS: Apixaban 2.5 MG TAB PO SCH ×2 (09:07→20:11)
[2018-08-25] MEDS: Digoxin 0.125 MG TAB PO SCH (09:08)
[2018-08-25] MEDS: Magnesium Oxide 400 MG TAB PO SCH (09:09)
[2018-08-25] MEDS: Famotidine 20 MG TAB PO SCH (09:09)
[2018-08-25] MEDS: Tamsulosin HCl 0.4 MG CAP PO SCH (09:09)
[2018-08-25] MEDS: Spironolactone 25 MG TAB PO SCH (11:59)
--- NOTE | 2018-08-25 16:03 | PRG ---
DATE OF SERVICE: 08/25/2018 SUBJECTIVE: Mr. Farias declined physical therapy today. I have explained to him that it is imperative that he get up and start walking. OBJECTIVE: VITAL SIGNS: He is afebrile, heart rate 73, respiratory rate 18, oximetry is 97% on 3L. He really needs to be on by mouth oxygen just to get his sat up over 90%. LUNGS: Still remarkable for crackles at his bases. HEART: Irregular. ABDOMEN: Soft and nontender. LABORATORY DATA: Echocardiogram showed an ejection fraction of 35% with moderate- to-severe mitral regurgitation and evidence of pulmonary hypertension. His creatinine is 1.45, hemoglobin is 8.8. IMPRESSION: 1. Atrial fibrillation with qhkddasf-ic-jplulf mitral regurgitation leading to pulmonary hypertension, pulmonary edema. He is on a beta bruna, digoxin now. 2. Ohvjk-ae-bgcvcyq renal insufficiency. 3. Deconditioning. He has had a positive fluid balance for the last three days. He may need fluid restriction. Cardiology is following. 4. Other problems include pancytopenia, status post transcatheter aortic valve replacement. 5. Collagenous colitis. 6. Hypertension. 7. Reflux disease. 8. History of coronary stenting in the past. 9. History of multiple back surgeries. 10. History of aortic aneurysm repair. 11. History of pancytopenia with circulating cold agglutinin, status post bone marrow biopsy showing decreased precursors for all cell lines. I do not see a hematology dictation in the computer. I suppose this could be followed up as an outpatient. His daughter answered all of the questions. I have encouraged him to ambulate. Job ID: [id number] [facility]
[2018-08-25] MEDS: Atorvastatin Calcium 20 MG TAB PO SCH (20:11)
[2018-08-25] MEDS ORDERED: diphenhydrAMINE 25 MG CAP PO SCH (23:15)
--- NOTE | 2018-08-25 23:17 | RAD ---
CHEST VIEW CHEST: 08/25/18 HISTORY: Airway blockage. AP view chest is obtained on 08/25/18. Comparison made to a previous exam from 08/22/18. AP view chest demonstrates an intracardiac prosthetic valve in place. There is more calcification of the aorta. The trachea and right and left main stem bronchi are unrema rkable. Cardiomegaly seen. Diffuse interstitial and patchy air space opacities seen in both lungs. Th is may represent bilateral pulmonary edema and/or pneumonia. Small bilateral pleural effusions seen. IMPRESSION: Radiographic appearance of the chest is stable and unchanged since the previous exam from three days earlier. POS: ANDRES
[2018-08-26] MEDS: Furosemide 40 MG/4 ML VIAL SLOW IVP SCH ×3 (05:52→17:00)
[2018-08-26] MEDS: HYDROcodone/Acetaminophen 10/325 mg Tablet PO PRN ×3 (05:54→21:02)
[2018-08-26 06:22] LABS: Anion Gap 11 mmol/L (10-20); BUN (Urea Nitrogen) 33 mg/dL (8.4-25.7); Calc. Creatinine Clearance 39 mL/min (70-130); Calcium 8.9 mg/dL (7.8-10.44); Carbon Dioxide 28 mmol/L (23-31); Chloride 103 mmol/L (98-107); Estimated GFR-MDRD 58; Glucose 86 mg/dL (83-110); Potassium 4.6 mmol/L (3.5-5.1); Sodium 137 mmol/L (136-145)
[2018-08-26] MEDS: Digoxin 0.125 MG TAB PO SCH (10:08)
[2018-08-26] MEDS: Spironolactone 25 MG TAB PO SCH (10:09)
[2018-08-26] MEDS: Amoxicillin/Potassium Clav 875 MG TAB PO SCH ×2 (10:09→21:01)
[2018-08-26] MEDS: Magnesium Oxide 400 MG TAB PO SCH (10:09)
[2018-08-26] MEDS: Aspirin 81 mg Enteric Coated Tablet PO SCH (10:09)
[2018-08-26] MEDS: Famotidine 20 MG TAB PO SCH (10:09)
[2018-08-26] MEDS: Potassium Chloride 10 MEQ TAB PO SCH (10:09)
[2018-08-26] MEDS: Tamsulosin HCl 0.4 MG CAP PO SCH (10:09)
[2018-08-26] MEDS: Apixaban 2.5 MG TAB PO SCH ×2 (10:10→21:01)
[2018-08-26] MEDS: diphenhydrAMINE 25 MG CAP PO SCH (10:11)
--- NOTE | 2018-08-26 11:10 | CT ---
CT CHEST PERFORMED WITHOUT CONTRAST ENHANCEMENT: HISTORY: Worsening shortness of breath. COMPARISON: 06/27/2018 FINDINGS: There has been a significant change in the appearance of the chest. Chronic lung changes are seen wi th emphysematous blebs noted. These are accentuated, as compared to the prior examination. Their ap pearance is accentuated by increased more perihilar interstitial lung changes, with a moderate right- sided pleural effusion and smaller left pleural effusion having developed. The repetitive onset of t his would suggest that it represents diffuse pulmonary edema, superimposed on chronic lung change. A co-existent infectious process is not totally excluded. In addition, since the prior examination, there is a stent across the aortic valve and what is probab ly coronary stent placement. Postop cholecystectomy changes are noted. The liver parenchyma shows no focal findings. IMPRESSION: Marked chronic lung changes, now with superimposed prominent interstitial lung changes, a significant change since the prior examination. The repetitive onset and the presence of effusions would sugges t that this is most likely marked pulmonary edema. POS: TPC
--- NOTE | 2018-08-26 15:28 | PDOC.PN ---
- Subjective Encounter Start Date: 08/26/18 (f/u dyspnea) Encounter Start Time: 15:26 Subjective: pt doesnt notice a change in his breathing. Denies any pain. -: reports at home he wasnt sleeping at night - was in a recliner mostly -: flat. Pt denies any new sx - Objective Resuscitation Status - Order Detail: 08/22/18 18:23 Resuscitation Status Routine Resuscitation Status: FULL: Full Resuscitation Discussed with: Patient Vital Signs & Weight: Vital Signs (12 hours) Temp Pulse Resp BP BP Pulse Ox 08/26/18 13:47 97.8 F 75 18 104/51 L 08/26/18 07:53 97.5 F L 77 20 122/58 L 100 08/26/18 04:00 97.4 F L 74 20 119/58 L 98 Weight Admit Weight 134 lb 3.2 oz Weight 130 lb 12.8 oz I&O: 08/25/18 08/26/18 08/27/18 06:59 06:59 06:59 Intake Total 1520 840 Output Total 425 550 200 Balance 1095 290 -200 Result Diagrams: 08/24/18 03:53 08/26/18 04:40 EKG Reviewed by me: Yes (tele - a fib 50-80 with 10 sec in 30's) Phys Exam - Physical Examination Constitutional: NAD Respiratory: no wheezing, no rhonchi rales at left base Cardiovascular: no significant murmur, irregular Gastrointestinal: soft, non-tender, no distention, positive bowel sounds Musculoskeletal: no edema Neurological: non-focal Deviation from normal: right hand - distal phalanx- some violaceous changes Dx/Plan (1) Systolic heart failure Code(s): I50.20 - UNSPECIFIED SYSTOLIC (CONGESTIVE) HEART FAILURE Status: Acute Qualifiers: Heart failure chronicity: acute on chronic Qualified Code(s): I50.23 - Acute on chronic systolic (congestive) heart failure (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 - OTHER AUTOIMMUNE HEMOLYTIC ANEMIAS Status: Acute (3) Atrial fibrillation Code(s): I48.91 - UNSPECIFIED ATRIAL FIBRILLATION Status: Acute Qualifiers: Atrial fibrillation type: persistent Qualified Code(s): I48.1 - Persistent atrial fibrillation (4) Acute and chronic respiratory failure with hypoxia Code(s): J96.21 - ACUTE AND CHRONIC RESPIRATORY FAILURE WITH HYPOXIA Status: Acute (5) Pancytopenia Code(s): D61.818 - OTHER PANCYTOPENIA Status: Acute (6) CAD (coronary artery disease) Code(s): I25.10 - ATHSCL HEART DISEASE OF [place] CORONARY ARTERY W/O ANG PCTRS Status: Chronic (7) S/P TAVR (transcatheter aortic valve replacement) Code(s): Z95.2 - PRESENCE OF PROSTHETIC HEART VALVE Status: Chronic (8) Pneumonia Code(s): J18.9 - PNEUMONIA, UNSPECIFIED ORGANISM Status: Ruled-out - Plan * Pt with persistent hypoxia - being treated multi-factorial * Diuresis with known systolic HF- current echo with ER 35-40% * A fib now rate control with short episode of bradycardia overnight * Antibiotics for possible pneumonia/pneumonitis- was on Zosyn/Vanc and now on augmentin * Cold agglutinens and pancytopenia - placed request for records from [facility] and consult to Hematology * Continue other meds as ordered * I think pt will benefit from additional IV diuresis prior to discharge based on CTscan with pulmonary edema today. Pt is at high risk for readmission and decompensation * Pt's finger is c/w cold agglutinen process - monitor * * dvt prophy - full dose * gi prophy -not indicated * code status full * * reviewed plan of care with patient and , no questions or further needs at end of eval. * Addendum - late entry - called by RN earlier today for pt refusing placement of IV or additional IV medication. Do not recommend discharge to home until cleared by Cardiology, and no change to recommendations above to continue IV diuresis.
[2018-08-26] MEDS: Atorvastatin Calcium 20 MG TAB PO SCH (21:02)
[2018-08-27] MEDS: HYDROcodone/Acetaminophen 10/325 mg Tablet PO PRN ×2 (01:43→09:25)
[2018-08-27] MEDS: Furosemide 40 MG/4 ML VIAL SLOW IVP SCH (06:18)
[2018-08-27 07:06] LABS: Anion Gap 10 mmol/L (10-20); BUN (Urea Nitrogen) 28 mg/dL (8.4-25.7); Calc. Creatinine Clearance 42 mL/min (70-130); Calcium 9.2 mg/dL (7.8-10.44); Carbon Dioxide 30 mmol/L (23-31); Chloride 102 mmol/L (98-107); Estimated GFR-MDRD 71; Glucose 91 mg/dL (83-110); Potassium 4.5 mmol/L (3.5-5.1); Sodium 137 mmol/L (136-145)
[2018-08-27 08:58] LABS: #Eosinphils 0.2 thou/uL (0.0-0.7); #Lymphocytes 0.8 thou/uL (1.20-3.40); #Monocytes 0.7 thou/uL (0.11-0.59); #Neutrophils 4.5 thou/uL (1.40-6.50); %Basophils 0.3 % (0.0-1.0); %Eosinophils 3.4 % (0.0-10.0); %Lymphocytes 12.4 % (21.0-51.0); %Monocytes 11.4 % (0.0-10.0); %Neutrophils 72.5 % (42.0-75.0); Hemoglobin 9.5 g/dL (14.0-18.0); Mean Corpuscular HGB CONC 31.8 g/dL (32.0-36.0); Mean Corpuscular Hemoglobin 34.2 pg (27.0-31.0); Mean Platelet Volume 11.6 fL (7.4-10.4); Platelet Count 42 thou/uL (130-400); RBC Distribution Width 20.7 % (11.5-14.5); Red Blood Cell (RBC) Count 2.79 mill/uL (4.70-6.10); White Blood Cell (WBC) Count 6.2 thou/uL (4.8-10.8)
[2018-08-27 08:59] LABS: Anisocytosis MODERATE=16-30 cells (100X) (0-5/hpf); Elliptocytes SLIGHT = 2-5 cells (100X) (0-1/hpf); MDiff Complete? YES; Macrocytosis MODERATE=16-30 cells (100X) (0-5/hpf); Platelet Morphology Comment Appears Decreased; Polychromasia SLIGHT = 2-3 cells (100X) (0-2/hpf)
[2018-08-27] MEDS: Spironolactone 25 MG TAB PO SCH (09:11)
[2018-08-27] MEDS: Tamsulosin HCl 0.4 MG CAP PO SCH (09:11)
[2018-08-27] MEDS: Famotidine 20 MG TAB PO SCH (09:11)
[2018-08-27] MEDS: Amoxicillin/Potassium Clav 875 MG TAB PO SCH (09:11)
[2018-08-27] MEDS: Magnesium Oxide 400 MG TAB PO SCH (09:11)
[2018-08-27] MEDS: Digoxin 0.125 MG TAB PO SCH (09:11)
[2018-08-27] MEDS: Potassium Chloride 10 MEQ TAB PO SCH (09:12)
[2018-08-27] MEDS: Aspirin 81 mg Enteric Coated Tablet PO SCH (09:12)
[2018-08-27] MEDS: Apixaban 2.5 MG TAB PO SCH (09:16)
[2018-08-27] MEDS: diphenhydrAMINE 25 MG CAP PO SCH (12:15)
[2018-08-27 12:16] VITALS: BP 94/51; TEMP 97.5
--- NOTE | 2018-08-27 12:47 | PDOC.EVN ---
Event Note - Event Note Event Note: DC SUMMARY #[id number]
--- NOTE | 2018-08-29 11:55 | DIS ---
DATE OF ADMISSION: 08/22/2018 DATE OF DISCHARGE: 08/27/2018 ADMITTING DIAGNOSES: 1. Chronic atrial fibrillation. 2. Aortic stenosis. 3. Hypertension. 4. Dyslipidemia. 5. Abdominal aortic aneurysm with prior repair. 6. Gastroesophageal reflux disease. 7. Osteoarthritis. 8. Coronary artery disease. 9. Pancytopenia. DISCHARGE DIAGNOSES: 1. Chronic atrial fibrillation. 2. Aortic stenosis. 3. Hypertension. 4. Dyslipidemia. 5. Abdominal aortic aneurysm with prior repair. 6. Gastroesophageal reflux disease. 7. Osteoarthritis. 8. Coronary artery disease. 9. Pancytopenia. 10. Congestive heart failure, systolic, diastolic, ejection fraction 30% to 35%. HOSPITAL COURSE: This is an 88-year-old male, who was brought to the hospital because of new-onset atrial fibrillation with RVR. The patient was admitted to Internal Medicine Team and seen very closely as well by Cardiology and Pulmonary as well as Oncology Teams. The patient was monitored closely, given IV diuretics and stabilized. The patient upon the time of discharge was stable. No complaints. Medication prescriptions were refilled and given. Follow up with PCP, Cardiology, and Pulmonary within 1 to 2 weeks. Stable upon the time of discharge. EF was 30% to 35%. Case and plan discussed with the patient's family at length. They understand and agreed with this plan. DISPOSITION: Home. FOLLOW UP: Follow up with PCP, Cardiology, and Pulmonary in 2 weeks. MEDICATIONS: See MAR. CONDITION: Stable. PROGNOSIS: Guarded. DIET: Low-fat, low-calorie, and high-fiber diet. Job ID: [id number]
--- NOTE | 2018-08-30 09:45 | PFT ---
PATIENT HISTORY: HEIGHT: 70 in WEIGHT: 134 SMOKER: yes HOW LONG: unknown PACKS PER DAY PRODUCTIVE COUGH: no LUNG DISEASE: PHYSICIAN INTERPRETATION FINAL REPORT: Patient had fair effort and cooperation. FVC 1.71 (45%), FEV1 1.22 (47%) FEV1/FVC 0.71 Total Expiratory time is 5.5 seconds There is a reduction the both the FEV1 and the FVC. This is symmetric based on the ratio. IMPRESSION: Overall, these pulmonary function studies are suggestive of a severe restrictive ventilatory defect. Lung Volumes would be required to confirm this. Diffusion capacity could help interpret these data. Clinical correlation is mandatory as these are inpatient studies. Angiographer: Vocational Childcare Teacher: BRENNAN KWON
== END 2018-08-27 15:10 | disposition home or self-care (01) | DRG 280 ==
LOC: ERS 11:49 → ERHOLD 17:10 → 2NO 19:37
PROVIDERS: ADMIT Emergency Medicine; ATTEND Emergency Medicine
DX: I48.91 Unspecified atrial fibrillation (principal); J96.21 Acute and chronic respiratory failure with hypoxia; I21.4 Non-ST elevation (NSTEMI) myocardial infarction; J18.9 Pneumonia, unspecified organism; N17.9 Acute kidney failure, unspecified; D61.818 Other pancytopenia; I25.10 Atherosclerotic heart disease of native coronary artery without angina pectoris; K21.9 Gastro-esophageal reflux disease without esophagitis; Z95.2 Presence of prosthetic heart valve; N18.9 Chronic kidney disease, unspecified; I27.20 Pulmonary hypertension, unspecified; I34.0 Nonrheumatic mitral (valve) insufficiency; K52.831 Collagenous colitis; M19.90 Unspecified osteoarthritis, unspecified site
CPT/HCPCS: 36415; 51701; 71045; 71250; 80048; 80053; 80076; 80202; 81003; 82553; 83605; 83735; 83880; 84145; 84443; 84484; 85025; 87040; 87086; 93005; 93306; 94010; 94760; 96365; 96367; J1160; J1940; J2543; J3370; J7050; J7070; Q0163

== ENCOUNTER 2018-09-17 05:37 | Inpatient (IN) | payer MEDICARE, OTHER ==
[2018-09-17 06:19] LABS: Hemoglobin 8.3 g/dL (14.0-18.0); Mean Corpuscular Hemoglobin 47.6 pg (27.0-31.0); Red Blood Cell (RBC) Count 1.74 mill/uL (4.70-6.10); White Blood Cell (WBC) Count 10.1 thou/uL (4.8-10.8)
[2018-09-17 06:38] LABS: ALT (SGPT) 16 U/L (8-55); AST (SGOT) 38 U/L (5-34); Albumin 3.2 g/dL (3.4-4.8); Alkaline Phosphatase 107 U/L (40-150); Anion Gap 16 mmol/L (10-20); BUN (Urea Nitrogen) 58 mg/dL (8.4-25.7); Bilirubin, Total 1.8 mg/dL (0.2-1.2); Calc. Creatinine Clearance 0 mL/min (70-130); Calcium 9.9 mg/dL (7.8-10.44); Carbon Dioxide 28 mmol/L (23-31); Chloride 101 mmol/L (98-107); Estimated GFR-MDRD 43; Globulin 4.1 g/dL (2.4-3.5); Glucose 106 mg/dL (83-110); Potassium 5.2 mmol/L (3.5-5.1); Protein, Total 7.3 g/dL (5.8-8.1); Sodium 140 mmol/L (136-145)
[2018-09-17 06:47] LABS: #Eosinphils 0.1 thou/uL (0.0-0.7); #Lymphocytes 0.6 thou/uL (1.20-3.40); #Monocytes 0.8 thou/uL (0.11-0.59); #Neutrophils 8.7 thou/uL (1.40-6.50); %Basophils 0.1 % (0.0-1.0); %Eosinophils 0.6 % (0.0-10.0); %Lymphocytes 5.9 % (21.0-51.0); %Monocytes 8.1 % (0.0-10.0); %Neutrophils 85.4 % (42.0-75.0); Anisocytosis SLIGHT = 6-15 cells (100X) (0-5/hpf); MDiff Complete? YES; Macrocytosis MODERATE=16-30 cells (100X) (0-5/hpf); Mean Corpuscular HGB CONC 39.1 g/dL (32.0-36.0); Mean Platelet Volume 11.4 fL (7.4-10.4); Platelet Count 39 thou/uL (130-400)
[2018-09-17 07:00] LABS: CKMB 1.4 ng/mL (0-6.6)
[2018-09-17] MEDS ORDERED: Furosemide 40 MG/4 ML VIAL ONE (07:09)
--- NOTE | 2018-09-17 07:44 | RAD ---
CHEST 1 VIEW: Date: 09/17/18 HISTORY: Dyspnea. COMPARISON: 09/04/18. FINDINGS: Cardiac silhouette is magnified and enlarged. Pulmonary vasculature remains engorged with worsening p atchy parenchymal infiltrate throughout each lung. Mediastinum is midline with aortic calcification a nd cardiac valve stent. No evidence of pneumothorax. Postoperative changes of the left axilla. IMPRESSION: 1. Pulmonary edema is worse than on the previous exam. 2. Cardiomegaly. 3. Atherosclerosis. POS: [facility]
[2018-09-17] MEDS ORDERED: Acetaminophen 325 MG TAB PO PRN (11:31)
[2018-09-17] MEDS ORDERED: Ondansetron ODT 4 MG TAB PO PRN (11:31)
[2018-09-17] MEDS ORDERED: Ondansetron PF 4 MG/2 ML Vial IVP PRN (11:31)
[2018-09-17] MEDS ORDERED: Calcium Carbonate 500 MG ChewTAB PO PRN (11:31)
--- NOTE | 2018-09-17 12:16 | HP ---
PRIMARY CARE PHYSICIAN: Dr. Donnie Colon at [facility]. CHIEF COMPLAINT: Respiratory distress. HISTORY OF PRESENT ILLNESS: The patient is an 88-year-old male with chronic systolic and diastolic heart failure, chronic respiratory failure on home oxygen and interstitial lung disease, who was brought in to the emergency room from [facility] with worsening shortness of breath along with oxygen desaturation. His O2 saturation at the facility was 86% on 3 L nasal cannula. He was discharged from the hospital approximately 2 weeks ago. At this time, the patient is on noninvasive positive pressure ventilation. Not much information is available from the patient due to this reason. The family is at the bedside. He had some dry cough yesterday. No chest pain, fever, or palpitations reported. He is compliant with all of his medications. It is unclear whether he is compliant with fluid restriction. In the emergency room, initial vital signs showed temperature 98.2, respirations of 22 with distress, pulse rate of 109 with a blood pressure 134/47. He was placed on noninvasive positive pressure ventilation. He received 40 mg IV Lasix in the emergency room. PAST MEDICAL HISTORY: 1. Chronic systolic and diastolic heart failure with moderate mitral regurgitation and severe tricuspid regurgitation. 2. Chronic atrial fibrillation, on anticoagulation. 3. Coronary artery disease, status post stent placement. 4. Aortic stenosis, status post valve replacement. 5. Hypertension. 6. Dyslipidemia. 7. Abdominal aortic aneurysm, status post repair. 8. GERD. 9. Degenerative joint disease. 10. Chronic pancytopenia. 11. CKD, stage 2. 12. Benign prostatic hypertrophy. PAST SURGICAL HISTORY: 1. TAVR in July 2018. 2. Abdominal aortic aneurysm repair. 3. Tonsillectomy. 4. Cholecystectomy. 5. Surgery for small-bowel obstruction. 6. Coronary stent placement. 7. Inguinal hernia repair. ALLERGIES: NO KNOWN DRUG ALLERGIES. CURRENT MEDICATIONS: At [facility]: 1. Aldactone 25 mg daily. 2. Toprol-XL 25 mg daily. 3. Clymer as needed. 4. Digoxin 125 mcg daily. 5. Magnesium oxide 400 mg daily. 6. Bumex 1 mg daily. 7. Aspirin 81 mg daily. 8. Nebulizer treatment every 4 hourly. 9. Lipitor 20 mg at bedtime. 10. Flomax 0.4 mg daily. 11. Eliquis 2.5 mg two times a day. SOCIAL HISTORY: The patient has a long-term history of smoking. He is , lives at home with his . No alcohol or drug use reported. He is do not resuscitate, which was verified with his DPOA at the bedside. FAMILY HISTORY: Positive for lung cancer in father and heart disease in mother. ALLERGIES: NO KNOWN DRUG ALLERGIES. REVIEW OF SYSTEMS: Cannot be reliably obtained from the patient due to current clinical condition. PHYSICAL EXAMINATION: VITAL SIGNS: As discussed above. GENERAL: An 88-year-old male in mild respiratory distress, on noninvasive positive pressure ventilation. HEENT: Head, atraumatic and normocephalic. Sclerae anicteric. Moist mucous membranes. No oral lesion. NECK: Supple. JVD elevated. No carotid bruit. LUNGS: Showed bibasilar rales with diffuse rhonchi and scattered wheezing. There was accessory muscle use. HEART: S1 and S2 present. Irregularly irregular. No heaves or pulsation. 2/6 systolic murmur over the mitral area and left lateral sternal border. ABDOMEN: Soft. Bowel sounds present. No rebound or guarding. Healed midline scar from previous surgery. EXTREMITIES: No edema or calf tenderness. NEUROLOGIC: Could not be reliably done due to current clinical condition. PSYCHIATRIC: Could not be reliably done due to current clinical condition. SKIN: Warm and dry. LABORATORY FINDINGS: CBC showed WBC 10.1 with hemoglobin 8.3, hematocrit 21.2, platelet count of 39. Chemistry showed sodium 140, potassium 5.2, chloride 101, bicarb 28, BUN 58, creatinine 1.55. His baseline creatinine is 1.1. BNP 1816. Troponin 0.073. Chest x-ray by my review showed pulmonary vascular congestion/pulmonary edema with cardiomegaly. IMPRESSION: 1. 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 ACC stage C. 2. Chronic interstitial lung disease. 3. Aortic stenosis, status post recent transcatheter aortic valve replacement. 4. Acute kidney injury on chronic kidney disease stage 2, probably secondary to cardiorenal syndrome. 5. Chronic atrial fibrillation, on anticoagulation. 6. Hypertension. 7. Hyperlipidemia. 8. Gastroesophageal reflux disease. 9. Benign prostatic hypertrophy. 10. Chronic thrombocytopenia. 11. Hyperkalemia, probably secondary to Aldactone and renal failure. 12. Elevated troponin secondary to demand ischemia. 13. Suspected moderate protein-calorie malnutrition. PLAN: The patient will be monitored in the intermediate care unit. Code status was verified as DNR. We will continue gentle diuresis. We will recheck electrolytes on a daily basis. We will try to wean off BiPAP. We will resume selected home medications. Continue anticoagulation. Plan of care was discussed with the patient and the family at the bedside. They stated understanding. The patient will require 2 to 3 days for stabilization. Job ID: [id number] MTDD
--- NOTE | 2018-09-17 14:18 | CON ---
DATE OF CONSULTATION: 09/17/2018 SERVICE: Pulmonary Medicine. REASON FOR CONSULT: IMCU patient. HISTORY OF PRESENT ILLNESS: The patient is an 88-year-old white male with past medical history significant for advancing debility. He was in his usual state of health and at the nursing facility trying to get some rehabilitation performed. Ultimately, he came into the hospital with increasing shortness of breath and some chest heaviness. He was placed in the IMCU. He was given a BiPAP overnight. He denies having any fevers or chills. He is coughing. He is bringing up some purulent sputum. He also had some nosebleeds and notes having a little bit of hemoptysis as well. He denies any current fevers. There were no significant overnight events. He got tucked in the IMCU. He has been given some diuretics. He does not indicate that he feels much better at this point. PAST MEDICAL HISTORY: 1. Chronic systolic and diastolic heart failure. 2. Mitral and tricuspid regurgitation. 3. Permanent atrial fibrillation. 4. Coronary artery disease. 5. Dyslipidemia. 6. Hypertension. 7. Gastroesophageal reflux disease. 8. Osteoarthritis. 9. BPH. 10. Chronic kidney disease, stage 2. 11. Chronic pancytopenia. PAST SURGICAL HISTORY: 1. TAVR in July 2018. 2. Total abdominal aortic aneurysm repair. 3. Tonsillectomy. 4. Cholecystectomy. 5. Small bowel surgery. 6. Percutaneous coronary intervention. 7. Inguinal hernia repair. ALLERGIES: NO KNOWN DRUG ALLERGIES. MEDICATIONS: List of his inpatient medications was reviewed. Multiple updates were made. FAMILY HISTORY: Noncontributory. SOCIAL HISTORY: Negative for alcohol, tobacco, or illicit drug use. He has no exposure to chemicals, dust, asbestos, or tuberculosis. REVIEW OF SYSTEMS: General, head, ears, eyes, nose, throat, cardiovascular, respiratory, GI, , musculoskeletal, neurologic, and skin is negative except as mentioned in the HPI. PHYSICAL EXAMINATION: VITAL SIGNS: Afebrile, pulse 96, blood pressure 115/44, respirations 18, and saturation 95% on 3 L nasal cannula. GENERAL: The patient is awake and alert, in no apparent distress. LUNGS: There is decent air entry. There is a slightly prolonged expiratory phase. There is extensive crackles at the left base. There is no crackles at the right base. There is no rhonchi are otherwise appreciated. HEART: Normal rate. Regular. ABDOMEN: Soft, nontender, nondistended. Bowel sounds are positive. MUSCULOSKELETAL: No cyanosis or clubbing. There is no pitting in the bilateral lower extremities. He has skin tenting throughout. : No Sin. NEUROLOGIC: Grossly nonfocal. LABORATORY DATA: WBC 10.1, hemoglobin 8.2 and roughly stable, platelets 39,000. Neutrophil count is above baseline at 85%. D-dimer 3.79. Creatinine 1.55 and gently uptrending. Potassium 5.2, sodium 140. Basic metabolic profile is otherwise unremarkable. Liver function studies are unremarkable. BNP 1800, troponin 0.067 and downtrending. Urinalysis was previously unremarkable. HIV-1 and -2 are nonreactive. Hepatitis B and C serologies are otherwise unremarkable. Cold agglutinins were unremarkable. IMAGING: Chest x-ray demonstrates extensive bilateral interstitial opacifications. Cardiomegaly is noted. Abnormal contour of the bilateral diaphragm is present. Replaced aortic valve is noted. ASSESSMENT: 1. Acute on chronic systolic and diastolic heart failure. 2. Severe mitral regurgitation. 3. Moderate aortic insufficiency. 4. Acute hypoxic respiratory failure. 5. Chronic lung disease with restrictive profile. 6. Possible healthcare associated pneumonia. DISCUSSION AND PLAN: I really do not have a good explanation for the horrendous asymmetric crackles. He moves good air on the right side and good air on the left side. That being said, the left side is accompanied by severe crackling. I am concerned that he could have developed an aspiration-related pneumonia. The only way to delineate this would likely be to repeat a CT of the chest. I am going to go ahead and pursue that to make certain we do not need to include antibiotics with our current regimen. It seems to me that the patient has severe valvular abnormalities including mitral regurgitation and aortic regurgitation following his TAVR. Additionally, he has systolic and diastolic heart failure. He has had 3 hospital stays since his TAVR which was only 2 months ago because of volume related issues. During last two months, he has gotten progressively weaker. At this point, we will either need to fix one of these issues or maybe consider transitioning over to comfort measures only as the patient is unlikely to make a meaningful recovery. Pulmonary/Critical Care will continue to follow along. 70 minutes have been devoted to this patient in various activities. I personally reviewed all imaging studies and laboratory data noted within this document. For fifty percent of this time, I was interacting with the patient at the bedside or coordinating care with the care team. For the remainder of the time I was immediately available to the patient in the hospital unit. Job ID: [id number] MTDD
[2018-09-17] MEDS: Ipratropium Bromide 2.5 ml Neb NEB SCH ×3 (14:19→22:18)
[2018-09-17] MEDS: Furosemide 40 MG/4 ML VIAL SLOW IVP SCH (14:21)
[2018-09-17] MEDS: HYDROcodone/Acetaminophen 10/325 mg Tablet PO PRN ×2 (14:24→20:57)
--- NOTE | 2018-09-17 16:54 | CT ---
NONCONTRAST ENHANCED CT CHEST 09/17/18 HISTORY: Asymmetric crackles in right lower lobe. History of endovascular stent. Comparison made to previous CT chest from 08/26/18. Noncontrast enhanced CT chest again demonstrates a right sided pleural effusion, slightly larger than on the previous comparison CT from 08/26/18. A small left sided pleural effusion also seen. Transaortic valve replacement is in place. Coronary artery calcification seen. Extensive interstitial lung fibrotic changes seen. there appears to be some areas of fluid in the right and left major fissures which appear to have increased since t he previous exam. No evidence of pneumothorax seen. IMPRESSION: 1. Increasing lung interstitial opacities compared to the previous CT from approximately one mon th earlier. 2. Slightly increasing right sided pleural effusion and some increased fluid in the major fissur es bilaterally. POS: [facility]
[2018-09-17] MEDS: Famotidine 20 MG TAB PO SCH (20:56)
[2018-09-17] MEDS: Senokot S 8.6-50 MG TAB PO SCH (20:56)
[2018-09-17] MEDS: Atorvastatin Calcium 20 MG TAB PO SCH (20:56)
[2018-09-17] MEDS: Apixaban 2.5 MG TAB PO SCH (20:56)
[2018-09-18] MEDS: Ipratropium Bromide 2.5 ml Neb NEB SCH ×6 (02:45→22:08)
[2018-09-18 06:20] LABS: Phosphorus 4.3 mg/dL (2.3-4.7)
[2018-09-18 06:22] LABS: ALT (SGPT) 15 U/L (8-55); AST (SGOT) 33 U/L (5-34); Albumin 2.9 g/dL (3.4-4.8); Alkaline Phosphatase 92 U/L (40-150); Anion Gap 15 mmol/L (10-20); BUN (Urea Nitrogen) 59 mg/dL (8.4-25.7); Bilirubin, Total 1.6 mg/dL (0.2-1.2); Calc. Creatinine Clearance 30 mL/min (70-130); Calcium 9.7 mg/dL (7.8-10.44); Carbon Dioxide 29 mmol/L (23-31); Chloride 103 mmol/L (98-107); Digoxin 1.76 ng/mL (0.8-2.0); Estimated GFR-MDRD 51; Globulin 3.7 g/dL (2.4-3.5); Glucose 71 mg/dL (83-110); Potassium 4.7 mmol/L (3.5-5.1); Protein, Total 6.6 g/dL (5.8-8.1); Sodium 142 mmol/L (136-145)
[2018-09-18] MEDS: Furosemide 40 MG/4 ML VIAL SLOW IVP SCH (06:38)
[2018-09-18 06:54] LABS: #Eosinphils 0.1 thou/uL (0.0-0.7); #Lymphocytes 0.4 thou/uL (1.20-3.40); #Monocytes 0.6 thou/uL (0.11-0.59); #Neutrophils 6.5 thou/uL (1.40-6.50); %Basophils 0.3 % (0.0-1.0); %Lymphocytes 5.5 % (21.0-51.0); %Monocytes 7.3 % (0.0-10.0); %Neutrophils 85.9 % (42.0-75.0); Anisocytosis SLIGHT = 6-15 cells (100X) (0-5/hpf); Elliptocytes SLIGHT = 2-5 cells (100X) (0-1/hpf); MDiff Complete? YES; Macrocytosis MODERATE=16-30 cells (100X) (0-5/hpf); Mean Corpuscular HGB CONC 32.1 g/dL (32.0-36.0); Mean Corpuscular Hemoglobin 39.4 pg (27.0-31.0); Mean Platelet Volume 12.1 fL (7.4-10.4); Platelet Count 34 thou/uL (130-400); Platelet Morphology Comment Appears Decreased; RBC Distribution Width 22.3 % (11.5-14.5); Red Blood Cell (RBC) Count 2.02 mill/uL (4.70-6.10); White Blood Cell (WBC) Count 7.5 thou/uL (4.8-10.8)
[2018-09-18] MEDS: HYDROcodone/Acetaminophen 10/325 mg Tablet PO PRN ×2 (07:06→17:59)
--- NOTE | 2018-09-18 08:38 | RAD ---
CHEST 1 VIEW: Date: 09/18/18 HISTORY: Heart failure. COMPARISON: 09/17/18. FINDINGS: Cardiac silhouette remains magnified and enlarged. Pulmonary vasculature remains engorged with widesp read patchy areas of parenchymal infiltrate, slightly less pronounced than on the prior study. Medias tinum is midline with aortic calcifications. No evidence of pneumothorax. Bilateral pleural fluid. Po stoperative changes left axilla. pilot boat captain leads overlie the chest. IMPRESSION: 1. Slight interval improvement in widespread patchy air space disease. 2. Persistent cardiomegaly and pulmonary edema. POS: [facility]
[2018-09-18] MEDS: Multivitamin W/ Minerals 1 TAB PO SCH (09:24)
[2018-09-18] MEDS: Magnesium Oxide 400 MG TAB PO SCH (09:24)
[2018-09-18] MEDS: Senokot S 8.6-50 MG TAB PO SCH ×2 (09:24→20:32)
[2018-09-18] MEDS: Aspirin 81 mg Enteric Coated Tablet PO SCH (09:24)
[2018-09-18] MEDS: Tamsulosin HCl 0.4 MG CAP PO SCH (09:24)
[2018-09-18] MEDS: Apixaban 2.5 MG TAB PO SCH ×2 (09:24→20:32)
[2018-09-18] MEDS: Digoxin 0.125 MG TAB PO SCH (09:25)
--- NOTE | 2018-09-18 13:59 | PRG ---
DATE OF SERVICE: 09/18/2018 SERVICE: Pulmonary Medicine. INTERVAL HISTORY: The patient is doing really quite well from respiratory standpoint. He is breathing comfortably. He did not require going on and off his BiPAP last night. Otherwise, there has been minimal change to his condition. PHYSICAL EXAMINATION: VITAL SIGNS: Afebrile with a T-max of 99.4, pulse 87, blood pressure 101/48, respirations 21, saturation 95% on 3 L nasal cannula. GENERAL: The patient is awake and alert, in no apparent distress. LUNGS: Decreased air entry. There is a prolonged expiratory phase. Dependent crackles are noted. HEART: Normal rate and regular. ABDOMEN: Soft, nontender, nondistended. Bowel sounds are positive. MUSCULOSKELETAL: No cyanosis or clubbing. There is no pitting or tenting. : No Sin. NEUROLOGIC: Grossly nonfocal. LABORATORY DATA: WBC 7.5, hemoglobin 8.0, platelets 34,000. Differential is predominantly neutrophils at 86%, and stable. Creatinine downtrending to 1.33. Basic metabolic profile is otherwise unremarkable. Total bilirubin is downtrending to 1.6. AST is downtrending. Troponin is downtrending at 0.06. BNP is 1800. Digoxin level 1.76. IMAGING STUDIES: CT of the chest demonstrates bilateral pleural effusions. One on the right seems to be a little bit larger. Interstitial fullness predominates. I really do not see any obvious infiltrate or infection consistent with pneumonia. There is a very tiny infiltrate, a focal area of volume. ASSESSMENT: 1. Acute on chronic hypoxic respiratory failure. 2. Acute on chronic systolic and diastolic heart failure. 3. Severe mitral regurgitation. 4. Moderate aortic insufficiency. 5. Chronic lung disease with likely restrictive profile. 6. Unlikely healthcare-associated pneumonia. DISCUSSION AND PLAN: We will continue to diurese the patient through time. Pulmonary Critical Care will continue to follow along. At this point, he is stable to the point where he can be transitioned to the floor. We will try to maintain tight blood pressure control given the severity of his mitral regurgitation. Pulmonary Critical Care will continue to follow along. Job ID: [id number]
[2018-09-18] MEDS: Atorvastatin Calcium 20 MG TAB PO SCH (20:32)
[2018-09-18] MEDS: Famotidine 20 MG TAB PO SCH (20:32)
--- NOTE | 2018-09-18 22:32 | PDOC.PN ---
- Subjective Encounter Start Date: 09/18/18 Encounter Start Time: 10:15 Patient seen and examined for Resp failure. Off NIPPV. No CP. No new complaints. No overnight events - Objective Resuscitation Status - Order Detail: 09/17/18 10:21 Resuscitation Status Routine Resuscitation Status: DNAR: NO Resuscitation Discussed with: confirmed with spouse JALEN Reviewed: Yes Vital Signs & Weight: Vital Signs (12 hours) Temp Pulse Pulse Pulse Pulse Resp BP 09/18/18 22:08 85 22 H 09/18/18 19:58 09/18/18 19:29 99.0 F 09/18/18 18:38 85 26 H 09/18/18 15:26 99.8 F H 09/18/18 14:48 89 24 H 09/18/18 12:11 99.4 F 09/18/18 11:40 89 82 92 99/48 L 09/18/18 10:37 80 17 BP BP Pulse Ox Pulse Ox Pulse Ox Pulse Ox 09/18/18 22:08 92 L 09/18/18 19:58 98 09/18/18 19:29 09/18/18 18:38 92 L 09/18/18 15:26 09/18/18 14:48 09/18/18 12:11 09/18/18 11:40 116/53 L 101/48 L 86 L 92 L 88 L 09/18/18 10:37 95 Weight Weight 118 lb 12.8 oz Most Recent Monitor Data Heart Rate from ECG 80 NIBP 109/51 NIBP BP-Mean 70 Respiration from ECG 21 SpO2 100 I&O: 09/17/18 09/18/18 09/19/18 06:59 06:59 06:59 Intake Total 384 240 Output Total 625 150 Balance -241 90 Result Diagrams: 09/18/18 05:13 09/18/18 05:13 EKG Reviewed by me: Yes (Tele SR) Phys Exam - Physical Examination Constitutional: NAD Respiratory: no wheezing B/L rhonchi with scat rales. Mild accessory muscle use Cardiovascular: RRR, no rub 3/6 SM over M area, no heaves/pulsations Gastrointestinal: soft, non-tender, no distention, positive bowel sounds Musculoskeletal: no edema Neurological: non-focal, normal sensation, moves all 4 limbs Psychiatric: normal affect, A&O x 3 Dx/Plan - Plan plan discussed w/ family 1. 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 ACC stage C. 2. Chronic interstitial lung disease. 3. Aortic stenosis, status post recent transcatheter aortic valve replacement. 4. Acute kidney injury on chronic kidney disease stage 2. 5. Chronic atrial fibrillation, on anticoagulation. 6. Hypertension. 7. Hyperlipidemia. 8. Gastroesophageal reflux disease. 9. Benign prostatic hypertrophy. 10. Chronic thrombocytopenia. 11. Hyperkalemia, probably secondary to Aldactone and renal failure. 12. Elevated troponin secondary to demand ischemia. 13. Suspected moderate protein-calorie malnutrition. 14. Stage 2 Rt heel pressure ulcer(present on admission) PLAN: Reduce IV Lasix to 40 mg IV daily Consult Dr Roy in AM Cont Nebs NIPPV PRN Resume Aldactone in AM Cont other meds as below AM labs Review of Systems - Review of Systems Constitutional: negative: fever, chills, sweats, weakness, malaise, other Cardiovascular: negative: chest pain, palpitations, orthopnea, paroxysmal nocturnal dyspnea, edema, light headedness, other Gastrointestinal: negative: Nausea, Vomiting, Abdominal Pain, Diarrhea, Constipation, Melena, Hematochezia, Other - Medications/Allergies Allergies/Adverse Reactions: Allergies Allergy/AdvReac Type Severity Reaction Status Date / Time No Known Allergies Allergy Verified 09/02/18 23:07 Medications: Current Medications Acetaminophen (Tylenol) 650 mg PO Q4H PRN PRN Reason: Headache/Fever/Mild Pain (1-3) Hydrocodone Bitart/Acetaminophen ([place] 10/325) 1 tab PO Q6H PRN PRN Reason: Severe Pain (7-10) Last Admin: 09/18/18 17:59 Dose: 1 tab Apixaban (Eliquis) 2.5 mg PO BID [facility] Last Admin: 09/18/18 20:32 Dose: 2.5 mg Aspirin (Ecotrin) 81 mg PO DAILY [facility] Last Admin: 09/18/18 09:24 Dose: 81 mg Atorvastatin Calcium (Lipitor) 20 mg PO HS [facility] Last Admin: 09/18/18 20:32 Dose: 20 mg Calcium Carbonate (Tums) 1,000 mg PO Q4H PRN PRN Reason: Heartburn or Indigestion Digoxin (Lanoxin) [facility] [place] Last Admin: 09/18/18 09:25 Dose: 0.125 mg Famotidine (Pepcid) 20 mg PO 2100 [facility] Last Admin: 09/18/18 20:32 Dose: 20 mg Furosemide (Lasix) 40 mg SLOW IVP DAILY [facility] Ipratropium [place] (Atrovent) 2.5 ml NEB [id number] [facility] Last Admin: 09/18/18 22:08 Dose: 2.5 ml Iron/Minerals/Multivitamins (Theragran M) 1 tab PO DAILY [facility] Last Admin: 09/18/18 09:24 Dose: 1 tab Magnesium Oxide (Magnesium Oxide) 400 mg PO DAILY [facility] Last Admin: 09/18/18 09:24 Dose: 400 mg Metoprolol Succinate (Toprol Xl) 25 mg PO DAILY [facility] Last Admin: 09/18/18 09:25 Dose: Not Given Ondansetron HCl (Zofran Odt) 4 mg PO Q6H PRN PRN Reason: Nausea/Vomiting Ondansetron HCl (Zofran) 4 mg IVP Q6H PRN PRN Reason: Nausea/Vomiting Senna/Docusate Sodium (Senokot S) 1 tab PO BID [facility] Last Admin: 09/18/18 20:32 Dose: 1 tab Sertraline HCl (Zoloft) 25 mg PO DAILY [facility] Last Admin: 09/18/18 09:24 Dose: 25 mg Sodium Chloride (Flush - Normal Saline) 10 ml IVF PRN PRN PRN Reason: Saline Flush Tamsulosin HCl (Flomax) 0.4 mg PO DAILY [facility] Last Admin: 09/18/18 09:24 Dose: 0.4 mg
[2018-09-19] MEDS: Ipratropium Bromide 2.5 ml Neb NEB SCH ×6 (02:51→22:27)
[2018-09-19] MEDS: HYDROcodone/Acetaminophen 10/325 mg Tablet PO PRN ×3 (05:35→18:47)
[2018-09-19 06:37] LABS: #Lymphocytes 0.5 thou/uL (1.20-3.40); #Monocytes 0.5 thou/uL (0.11-0.59); #Neutrophils 5.4 thou/uL (1.40-6.50); %Basophils 0.2 % (0.0-1.0); %Eosinophils 0.7 % (0.0-10.0); %Lymphocytes 7.5 % (21.0-51.0); %Monocytes 7.1 % (0.0-10.0); %Neutrophils 84.6 % (42.0-75.0); Hemoglobin 7.7 g/dL (14.0-18.0); Mean Corpuscular HGB CONC 30.3 g/dL (32.0-36.0); Mean Corpuscular Hemoglobin 37.5 pg (27.0-31.0); Mean Platelet Volume 11.1 fL (7.4-10.4); Platelet Count 33 thou/uL (130-400); Red Blood Cell (RBC) Count 2.05 mill/uL (4.70-6.10); White Blood Cell (WBC) Count 6.4 thou/uL (4.8-10.8)
[2018-09-19 06:40] LABS: ALT (SGPT) 19 U/L (8-55); AST (SGOT) 44 U/L (5-34); Albumin 2.9 g/dL (3.4-4.8); Alkaline Phosphatase 95 U/L (40-150); Anion Gap 13 mmol/L (10-20); BUN (Urea Nitrogen) 60 mg/dL (8.4-25.7); Bilirubin, Total 1.9 mg/dL (0.2-1.2); Calc. Creatinine Clearance 30 mL/min (70-130); Calcium 9.7 mg/dL (7.8-10.44); Carbon Dioxide 31 mmol/L (23-31); Chloride 103 mmol/L (98-107); Estimated GFR-MDRD 51; Globulin 3.9 g/dL (2.4-3.5); Glucose 94 mg/dL (83-110); Magnesium 2.5 mg/dL (1.6-2.6); Potassium 4.3 mmol/L (3.5-5.1); Protein, Total 6.8 g/dL (5.8-8.1); Sodium 143 mmol/L (136-145)
[2018-09-19] MEDS ORDERED: Furosemide 40 MG/4 ML VIAL SLOW IVP SCH (09:00)
[2018-09-19] MEDS: Senokot S 8.6-50 MG TAB PO SCH ×2 (09:08→20:13)
[2018-09-19] MEDS: Spironolactone 25 MG TAB PO SCH (09:09)
[2018-09-19] MEDS: Digoxin 0.125 MG TAB PO SCH (09:09)
[2018-09-19] MEDS: Apixaban 2.5 MG TAB PO SCH ×2 (09:09→20:13)
[2018-09-19] MEDS: Multivitamin W/ Minerals 1 TAB PO SCH (09:09)
[2018-09-19] MEDS: Tamsulosin HCl 0.4 MG CAP PO SCH (09:09)
[2018-09-19] MEDS: Aspirin 81 mg Enteric Coated Tablet PO SCH (09:09)
[2018-09-19] MEDS: Magnesium Oxide 400 MG TAB PO SCH (09:09)
[2018-09-19 09:42] LABS: MDiff Complete? YES; Macrocytosis MODERATE=16-30 cells (100X) (0-5/hpf); Platelet Morphology Comment Appears Decreased; Polychromasia SLIGHT = 2-3 cells (100X) (0-2/hpf)
--- NOTE | 2018-09-19 15:15 | RAD ---
MODIFIED BARIUM SWALLOW: HISTORY: Dysphagia, R13.12. Feeding difficulties, R63.3. RADIATION DOSIMETRY: Fluoroscopy 2.5 minutes. AK 5.9 mGy. TECHNIQUE: Various consistencies of barium sulfate were given to the patient, including thin barium, nectar thic k barium, and barium in pudding. The patient had obvious aspiration with thin barium. With small sips, as well as larger sips, there was obvious aspiration. This suggests that the patient should not have thin barium or thin consisten cy fluids ingested, as there is obvious aspiration. With the thicker barium consistencies, the patie nt is able to control the ingested material. There is obvious vallecular pooling but no zak aspira tion with the thicker consistencies of ingested material. IMPRESSION: The patient definitely aspirates with thin consistency fluid. POS: ANDRES
[2018-09-19] MEDS ORDERED: Furosemide 100 MG/10 ML VIAL SLOW IVP SCH (17:45)
--- NOTE | 2018-09-19 19:49 | PRG ---
DATE OF SERVICE: 09/19/2018 SUBJECTIVE: I examined Mr. Farias, met with his . He is in no distress. He is resting comfortably. He was slightly somnolent, but not obtunded. He did receive hydrocodone earlier. His was concerned about this till I reminded her that he had received hydrocodone for his complaints of back pain. She says that it does make him sleepy. OBJECTIVE: GENERAL: He is extremely cachectic appearing. VITAL SIGNS: His heart rate is 80, respiratory rates in the 20s, oximetry is in mid 90s on nasal cannula, blood pressure 121/61. This evening. LUNGS: Remarkable for crackles at both lung bases. HEART: Regular rhythm. He has a grade 3/6 systolic murmur. ABDOMEN: Soft and nontender. EXTREMITIES: Without asymmetry or edema. LABORATORY DATA: White count 6.4, hemoglobin 7.7, platelets 33,000. Sodium 143, potassium 4.3, chloride 103, bicarb 31, BUN 16, and creatinine 1.34. Intake and output was positive 330. DIAGNOSTIC STUDIES: Chest radiograph still shows bilateral patchy infiltrates yesterday. I reviewed all films back into 2017. He had a clear chest x-ray in 06/2018. Barium swallow shows aspiration. IMPRESSION: Combination of cardiogenic pulmonary edema secondary to mitral regurgitation and aspiration pneumonitis. Apparently, over the weekend, he was told that he had pulmonary fibrosis. In my opinion, he does not. He had a clear chest x-ray in June and pulmonary fibrosis does not develop in 2 months. He no doubt has some preexisting structural lung disease, but he does not have nonspecific interstitial pneumonitis. I suspect the majority of his changes on his radiograph for interstitial edema related. We will continue to follow with the other physicians caring for him. Job ID: [id number]
[2018-09-19] MEDS: Atorvastatin Calcium 20 MG TAB PO SCH (20:13)
[2018-09-19] MEDS: Famotidine 20 MG TAB PO SCH (20:13)
--- NOTE | 2018-09-19 22:30 | PDOC.PN ---
- Subjective Encounter Start Date: 09/19/18 Encounter Start Time: 09:30 Patient seen and examined for CHF. Somnolent. No CP. No new complaints. No overnight events - Objective Resuscitation Status - Order Detail: 09/17/18 10:21 Resuscitation Status Routine Resuscitation Status: DNAR: NO Resuscitation Discussed with: confirmed with spouse MAR Reviewed: Yes Vital Signs & Weight: Vital Signs (12 hours) Temp Pulse Resp Pulse Ox 09/19/18 20:00 95 09/19/18 19:54 98.2 F 09/19/18 18:49 81 28 H 94 L 09/19/18 15:20 98.2 F 09/19/18 14:22 72 18 99 09/19/18 11:25 98.3 F 09/19/18 10:42 79 24 H 97 Weight Admit Weight 118 lb 12.8 oz Weight 118 lb 12.8 oz Most Recent Monitor Data Heart Rate from ECG 81 NIBP 121/61 NIBP BP-Mean 81 Respiration from ECG 22 SpO2 80 I&O: 09/18/18 09/19/18 09/20/18 06:59 06:59 06:59 Intake Total 384 480 252 Output Total 625 150 325 Balance -241 330 -73 Result Diagrams: 09/19/18 06:09 09/19/18 06:09 EKG Reviewed by me: Yes (Tele SR) Phys Exam - Physical Examination Constitutional: NAD Respiratory: no wheezing, no rhonchi B/L rhonchi with few rales at bases Cardiovascular: RRR, no rub Gastrointestinal: soft, positive bowel sounds Musculoskeletal: no edema Dx/Plan - Plan 1. 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 ACC stage C. 2. Aspiration pneumonitis. 3. Aortic stenosis, status post recent transcatheter aortic valve replacement. 4. Acute kidney injury on chronic kidney disease stage 2. 5. Chronic atrial fibrillation, on anticoagulation. 6. Hypertension. 7. Hyperlipidemia. 8. Gastroesophageal reflux disease. 9. Benign prostatic hypertrophy. 10. Chronic thrombocytopenia. 11. Hyperkalemia, probably secondary to Aldactone and renal failure. 12. Elevated troponin secondary to demand ischemia. 13. Suspected moderate protein-calorie malnutrition. 14. Stage 2 Rt heel pressure ulcer(present on admission) 15. Swallow dysfunction PLAN: Cont IV Lasix 40 mg daily Cont Nebs Cont Aldactone Cont other meds as below AM labs Barium swallow today Review of Systems - Review of Systems Respiratory: SOB with Excertion. negative: Cough, Dry, Shortness of Breath, Hemoptysis, Pleuritic Pain, Sputum, Wheezing Cardiovascular: negative: chest pain, palpitations, orthopnea, paroxysmal nocturnal dyspnea, edema, light headedness, other Gastrointestinal: negative: Nausea, Vomiting, Abdominal Pain, Diarrhea, Constipation, Melena, Hematochezia, Other - Medications/Allergies Allergies/Adverse Reactions: Allergies Allergy/AdvReac Type Severity Reaction Status Date / Time No Known Allergies Allergy Verified 09/02/18 23:07 Medications: Current Medications Acetaminophen (Tylenol) 650 mg PO Q4H PRN PRN Reason: Headache/Fever/Mild Pain (1-3) Hydrocodone Bitart/Acetaminophen ([place] 10/325) 1 tab PO Q6H PRN PRN Reason: Severe Pain (7-10) Last Admin: 09/19/18 18:47 Dose: 1 tab Apixaban (Eliquis) 2.5 mg PO BID [facility] Last Admin: 09/19/18 20:13 Dose: 2.5 mg Aspirin (Ecotrin) 81 mg PO DAILY [facility] Last Admin: 09/19/18 09:09 Dose: 81 mg Atorvastatin Calcium (Lipitor) 20 mg PO HS [facility] Last Admin: 09/19/18 20:13 Dose: 20 mg Calcium Carbonate (Tums) 1,000 mg PO Q4H PRN PRN Reason: Heartburn or Indigestion Digoxin (Lanoxin) 0.125 mg PO QAM [facility] Last Admin: 09/19/18 09:09 Dose: 0.125 mg Famotidine (Pepcid) 20 mg PO 2100 [facility] Last Admin: 09/19/18 20:13 Dose: 20 mg Furosemide (Lasix) 80 mg SLOW IVP DAILY [facility] Furosemide (Lasix) 40 mg SLOW IVP 0600,1400 [facility] Ipratropium [place] (Atrovent) 2.5 ml NEB [id number] [facility] Last Admin: 09/19/18 18:49 Dose: 2.5 ml Iron/Minerals/Multivitamins (Theragran M) 1 tab PO DAILY [facility] Last Admin: 09/19/18 09:09 Dose: 1 tab Magnesium Oxide (Magnesium Oxide) 400 mg PO DAILY [facility] Last Admin: 09/19/18 09:09 Dose: 400 mg Metoprolol Succinate (Toprol Xl) 25 mg PO DAILY [facility] Last Admin: 09/19/18 09:08 Dose: Not Given Ondansetron HCl (Zofran Odt) 4 mg PO Q6H PRN PRN Reason: Nausea/Vomiting Ondansetron HCl (Zofran) 4 mg IVP Q6H PRN PRN Reason: Nausea/Vomiting Senna/Docusate Sodium (Senokot S) 1 tab PO BID [facility] Last Admin: 09/19/18 20:13 Dose: 1 tab Sertraline HCl (Zoloft) 25 mg PO DAILY [facility] Last Admin: 09/19/18 09:09 Dose: 25 mg Sodium Chloride (Flush - Normal Saline) 10 ml IVF PRN PRN PRN Reason: Saline Flush Spironolactone (Aldactone) 25 mg PO QAM-WM [facility] Last Admin: 09/19/18 09:09 Dose: 25 mg Tamsulosin HCl (Flomax) 0.4 mg PO DAILY [facility] Last Admin: 09/19/18 09:09 Dose: 0.4 mg
[2018-09-20] MEDS: Ipratropium Bromide 2.5 ml Neb NEB SCH ×6 (02:22→22:22)
[2018-09-20] MEDS: Furosemide 40 MG/4 ML VIAL SLOW IVP SCH ×2 (05:37→13:47)
[2018-09-20 05:58] LABS: ALT (SGPT) 16 U/L (8-55); AST (SGOT) 39 U/L (5-34); Albumin 2.8 g/dL (3.4-4.8); Alkaline Phosphatase 96 U/L (40-150); Anion Gap 13 mmol/L (10-20); BUN (Urea Nitrogen) 66 mg/dL (8.4-25.7); Bilirubin, Total 1.5 mg/dL (0.2-1.2); Calc. Creatinine Clearance 30 mL/min (70-130); Calcium 9.5 mg/dL (7.8-10.44); Carbon Dioxide 30 mmol/L (23-31); Chloride 104 mmol/L (98-107); Estimated GFR-MDRD 50; Globulin 3.8 g/dL (2.4-3.5); Glucose 99 mg/dL (83-110); Magnesium 2.2 mg/dL (1.6-2.6); Potassium 4.4 mmol/L (3.5-5.1); Protein, Total 6.6 g/dL (5.8-8.1); Sodium 143 mmol/L (136-145)
[2018-09-20 06:11] LABS: Platelet Count 29 thou/uL (130-400)
[2018-09-20 06:40] LABS: Anisocytosis SLIGHT = 6-15 cells (100X) (0-5/hpf); Band 5 % (5-11); Eosinophils 1 % (0-10); Hemoglobin 7.6 g/dL (14.0-18.0); Lymphocytes 5 % (21-51); MDiff Complete? YES; Macrocytosis MODERATE=16-30 cells (100X) (0-5/hpf); Mean Corpuscular HGB CONC 31.1 g/dL (32.0-36.0); Mean Corpuscular Hemoglobin 37.8 pg (27.0-31.0); Mean Platelet Volume 12.2 fL (7.4-10.4); Monocytes 9 % (0-10); Neutrophil 80 % (42-75); Platelet Morphology Comment Appears Decreased; RBC Distribution Width 21.7 % (11.5-14.5); Red Blood Cell (RBC) Count 2.01 mill/uL (4.70-6.10); White Blood Cell (WBC) Count 5.7 thou/uL (4.8-10.8)
--- NOTE | 2018-09-20 07:53 | CON ---
DATE OF CONSULTATION: HISTORY OF PRESENT ILLNESS: The patient is a pleasant 88-year-old gentleman with a history of TAVR and congestive heart failure, who presents once again with increasing dyspnea. The patient recently underwent a high risk TAVR procedure in [place]. He was admitted back in August with congestive heart failure. He also has severe thrombocytopenia and chronic atrial fibrillation. The patient presented with increasing dyspnea. He denies having any chest discomfort. PAST MEDICAL HISTORY: : 1. Status post TAVR. 2. Coronary artery disease. 3. History of aortic aneurysm. 4. Hypertension. 5. Dyslipidemia. 6. Thrombocytopenia. PAST SURGICAL HISTORY: Cholecystectomy, hernia surgery, tonsillectomy, aneurysm repair, back surgery. ALLERGIES: NONE. MEDICATIONS: See nursing list. SOCIAL HISTORY: The patient used to smoke cigars. PHYSICAL EXAMINATION: GENERAL: Ill-appearing gentleman, in mild distress. VITAL SIGNS: Blood pressure 107/57. NECK: Shows no jugular venous distention. LUNGS: Have crackles throughout both lung garcia. HEART: Irregular rate and rhythm. Normal S1, S2. 1/6 systolic murmur. ABDOMEN: Nondistended. EXTREMITIES: Showed no edema. LABORATORY DATA: His sodium 143, potassium 4.3, chloride 103, bicarbonate 31, BUN 9, creatinine 1.34. Troponin was 0.067. White blood cell count is 6.4, hemoglobin 7.7, hematocrit 25.4, and platelets 33. His chest x-ray showed him to have bilateral pulmonary edema with small effusions. EKG revealed atrial fibrillation with a nonspecific interventricular conduction delay, ST-T wave abnormality suggestive of ischemia or digitalis effect. IMPRESSION: 1. Congestive heart failure. 2. Status post transcatheter aortic valve replacement. 3. Permanent atrial fibrillation. 4. Coronary artery disease. 5. Hypertension. 6. Dyslipidemia. 7. Thrombocytopenia. PLAN: This unfortunate gentleman presents with congestive heart failure and possible aspiration pneumonia. The patient will be diuresed with IV Lasix. He will continue on spironolactone. The patient's prognosis is guarded. We will follow this patient with you through his hospitalization. Job ID: [id number] MTDD
[2018-09-20] MEDS: Spironolactone 25 MG TAB PO SCH (08:05)
[2018-09-20] MEDS: Tamsulosin HCl 0.4 MG CAP PO SCH (08:05)
[2018-09-20] MEDS: Aspirin 81 mg Enteric Coated Tablet PO SCH (08:05)
[2018-09-20] MEDS: Multivitamin W/ Minerals 1 TAB PO SCH (08:05)
[2018-09-20] MEDS: Digoxin 0.125 MG TAB PO SCH (08:05)
[2018-09-20] MEDS: Magnesium Oxide 400 MG TAB PO SCH (08:05)
[2018-09-20] MEDS: Senokot S 8.6-50 MG TAB PO SCH ×2 (08:05→19:47)
[2018-09-20] MEDS: Apixaban 2.5 MG TAB PO SCH (08:06)
[2018-09-20] MEDS: HYDROcodone/Acetaminophen 10/325 mg Tablet PO PRN ×2 (08:06→18:18)
[2018-09-20] MEDS ORDERED: Furosemide 100 MG/10 ML VIAL SLOW IVP SCH (09:00)
--- NOTE | 2018-09-20 16:17 | PDOC.PN ---
- Subjective Encounter Start Date: 09/20/18 Encounter Start Time: 14:30 Patient seen and examined for CHF/Resp failure. Poor appetite. No CP. No new complaints. No overnight events - Objective Resuscitation Status - Order Detail: 09/17/18 10:21 Resuscitation Status Routine Resuscitation Status: DNAR: NO Resuscitation Discussed with: confirmed with spouse MAR Reviewed: Yes Vital Signs & Weight: Vital Signs (12 hours) Temp Pulse Pulse Pulse Resp BP BP 09/20/18 15:10 97.8 F 85 20 09/20/18 14:20 75 20 09/20/18 13:50 75 09/20/18 11:20 79 20 09/20/18 11:15 97.6 F 85 20 09/20/18 09:57 119 H 80 122/58 L 118/55 L 09/20/18 08:05 80 09/20/18 08:00 80 20 09/20/18 07:20 97.7 F 80 19 BP Pulse Ox Pulse Ox 09/20/18 15:10 92/54 L 91 L 09/20/18 14:20 09/20/18 13:50 102/51 L 09/20/18 11:20 09/20/18 11:15 99/49 L 92 L 09/20/18 09:57 95 09/20/18 08:05 09/20/18 08:00 09/20/18 07:20 125/58 L 91 L Weight Admit Weight 118 lb 12.8 oz Weight 111 lb 3.2 oz Most Recent Monitor Data Heart Rate from ECG 81 NIBP 121/61 NIBP BP-Mean 81 Respiration from ECG 22 SpO2 80 I&O: 09/19/18 09/20/18 09/21/18 06:59 06:59 06:59 Intake Total 480 302 Output Total 150 325 Balance 330 -23 Result Diagrams: 09/20/18 04:53 09/20/18 04:53 EKG Reviewed by me: Yes (Tele Afib) Phys Exam - Physical Examination Constitutional: NAD Respiratory: no wheezing, no rhonchi Scat rhonchi with bibasilar rales Cardiovascular: no rub, irregular Gastrointestinal: soft, non-tender, positive bowel sounds Musculoskeletal: no edema Neurological: moves all 4 limbs Dx/Plan - Plan DVT proph w/SCDs 1. 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 ACC stage C. 2. Aspiration pneumonitis. 3. Aortic stenosis, status post recent transcatheter aortic valve replacement. 4. Acute kidney injury on chronic kidney disease stage 2. 5. Chronic atrial fibrillation. 6. Hypertension. 7. Hyperlipidemia. 8. Gastroesophageal reflux disease. 9. Benign prostatic hypertrophy. 10. Chronic thrombocytopenia. 11. Hyperkalemia, probably secondary to Aldactone and renal failure. improved 12. Elevated troponin secondary to demand ischemia. 13. Moderate protein-calorie malnutrition. 14. Stage 2 Rt heel pressure ulcer(present on admission) 15. Swallow dysfunction. PLAN: Cont IV Lasix 40 mg BID Anticoag held due to thrombocytopenia Change diet to regular due to poor appetite Cont other meds as below AM labs Review of Systems - Review of Systems Cardiovascular: negative: chest pain, palpitations, orthopnea, paroxysmal nocturnal dyspnea, edema, light headedness, other Gastrointestinal: negative: Nausea, Vomiting, Abdominal Pain, Diarrhea, Constipation, Melena, Hematochezia, Other - Medications/Allergies Allergies/Adverse Reactions: Allergies Allergy/AdvReac Type Severity Reaction Status Date / Time No Known Allergies Allergy Verified 09/02/18 23:07 Medications: Current Medications Acetaminophen (Tylenol) 650 mg PO Q4H PRN PRN Reason: Headache/Fever/Mild Pain (1-3) Hydrocodone Bitart/Acetaminophen ([place] 10/325) 1 tab PO Q6H PRN PRN Reason: Severe Pain (7-10) Last Admin: 09/20/18 08:06 Dose: 1 tab Aspirin (Ecotrin) 81 mg PO DAILY [facility] Last Admin: 09/20/18 08:05 Dose: 81 mg Atorvastatin Calcium (Lipitor) 20 mg PO HS [facility] Last Admin: 09/19/18 20:13 Dose: 20 mg Calcium Carbonate (Tums) 1,000 mg PO Q4H PRN PRN Reason: Heartburn or Indigestion Carvedilol (Coreg) 3.125 mg PO BID[facility] Digoxin (Lanoxin) 0.125 mg PO QAM [facility] Last Admin: 09/20/18 08:05 Dose: 0.125 mg Famotidine (Pepcid) 20 mg PO 2100 [facility] Last Admin: 09/19/18 20:13 Dose: 20 mg Furosemide (Lasix) 40 mg SLOW IVP 0600,1400 [facility] Last Admin: 09/20/18 13:47 Dose: 40 mg Ipratropium [place] (Atrovent) 2.5 ml NEB [id number] [facility] Last Admin: 09/20/18 14:20 Dose: 2.5 ml Iron/Minerals/Multivitamins (Theragran M) 1 tab PO DAILY [facility] Last Admin: 09/20/18 08:05 Dose: 1 tab Magnesium Oxide (Magnesium Oxide) 400 mg PO DAILY [facility] Last Admin: 09/20/18 08:05 Dose: 400 mg Ondansetron HCl (Zofran Odt) 4 mg PO Q6H PRN PRN Reason: Nausea/Vomiting Ondansetron HCl (Zofran) 4 mg IVP Q6H PRN PRN Reason: Nausea/Vomiting Senna/Docusate Sodium (Senokot S) 1 tab PO BID [facility] Last Admin: 09/20/18 08:05 Dose: 1 tab Sertraline HCl (Zoloft) 25 mg PO DAILY [facility] Last Admin: 09/20/18 08:06 Dose: 25 mg Sodium Chloride (Flush - Normal Saline) 10 ml IVF PRN PRN PRN Reason: Saline Flush Last Admin: 09/20/18 08:07 Dose: 10 ml Spironolactone (Aldactone) 25 mg PO QAM[facility] Last Admin: 09/20/18 08:05 Dose: 25 mg Tamsulosin HCl (Flomax) 0.4 mg PO DAILY [facility] Last Admin: 09/20/18 08:05 Dose: 0.4 mg
[2018-09-20] MEDS: Carvedilol 3.125 MG TAB PO SCH (16:48)
[2018-09-20] MEDS ORDERED: Carvedilol 3.125 MG TAB PO SCH (17:00)
[2018-09-20] MEDS: Famotidine 20 MG TAB PO SCH (19:47)
[2018-09-20] MEDS: Atorvastatin Calcium 20 MG TAB PO SCH (19:47)
[2018-09-21] MEDS: Ipratropium Bromide 2.5 ml Neb NEB SCH ×4 (02:16→13:55)
[2018-09-21 05:26] LABS: ALT (SGPT) 16 U/L (8-55); AST (SGOT) 39 U/L (5-34); Albumin 2.8 g/dL (3.4-4.8); Alkaline Phosphatase 94 U/L (40-150); Anion Gap 16 mmol/L (10-20); BUN (Urea Nitrogen) 79 mg/dL (8.4-25.7); Bilirubin, Total 1.5 mg/dL (0.2-1.2); Calc. Creatinine Clearance 25 mL/min (70-130); Calcium 9.6 mg/dL (7.8-10.44); Carbon Dioxide 30 mmol/L (23-31); Chloride 104 mmol/L (98-107); Estimated GFR-MDRD 43; Globulin 3.8 g/dL (2.4-3.5); Glucose 98 mg/dL (83-110); Magnesium 2.8 mg/dL (1.6-2.6); Potassium 4.9 mmol/L (3.5-5.1); Protein, Total 6.6 g/dL (5.8-8.1); Sodium 145 mmol/L (136-145)
[2018-09-21] MEDS: Furosemide 40 MG/4 ML VIAL SLOW IVP SCH (05:58)
[2018-09-21 06:14] LABS: #Eosinphils 0.1 thou/uL (0.0-0.7); #Lymphocytes 0.6 thou/uL (1.20-3.40); #Monocytes 0.5 thou/uL (0.11-0.59); #Neutrophils 4.8 thou/uL (1.40-6.50); %Basophils 0.3 % (0.0-1.0); %Lymphocytes 10.5 % (21.0-51.0); %Monocytes 8.6 % (0.0-10.0); %Neutrophils 79.6 % (42.0-75.0); Anisocytosis MODERATE=16-30 cells (100X) (0-5/hpf); Hemoglobin 7.8 g/dL (14.0-18.0); MDiff Complete? YES; Macrocytosis SLIGHT = 6-15 cells (100X) (0-5/hpf); Mean Corpuscular HGB CONC 32.5 g/dL (32.0-36.0); Mean Corpuscular Hemoglobin 39.6 pg (27.0-31.0); Mean Platelet Volume 12.6 fL (7.4-10.4); Platelet Count 33 thou/uL (130-400); Platelet Morphology Comment Appears Decreased; RBC Distribution Width 21.6 % (11.5-14.5); Red Blood Cell (RBC) Count 1.96 mill/uL (4.70-6.10)
[2018-09-21] MEDS: Digoxin 0.125 MG TAB PO SCH (09:56)
[2018-09-21] MEDS: Magnesium Oxide 400 MG TAB PO SCH (09:56)
[2018-09-21] MEDS: Carvedilol 3.125 MG TAB PO SCH ×2 (09:56→16:38)
[2018-09-21] MEDS: Spironolactone 25 MG TAB PO SCH (09:56)
[2018-09-21] MEDS: Aspirin 81 mg Enteric Coated Tablet PO SCH (09:56)
[2018-09-21] MEDS: Tamsulosin HCl 0.4 MG CAP PO SCH (09:57)
[2018-09-21] MEDS: Senokot S 8.6-50 MG TAB PO SCH (09:57)
[2018-09-21] MEDS: Multivitamin W/ Minerals 1 TAB PO SCH (09:57)
[2018-09-21 13:52] VITALS: BMI 15.9
[2018-09-21 15:58] VITALS: BP 123/58; TEMP 96.7
[2018-09-21] MEDS: HYDROcodone/Acetaminophen 10/325 mg Tablet PO PRN (16:44)
--- NOTE | 2018-09-21 21:11 | DIS ---
DATE OF ADMISSION: 09/17/2018 DATE OF DISCHARGE: 09/21/2018 DISCHARGE DISPOSITION: Home with home hospice. DISCHARGE MEDICATIONS: Same as admission medications. Anticoagulation per Cardiology. ALLERGIES: NO KNOWN DRUG ALLERGIES. PATIENT WAS SEEN AND EXAMINED ON THE DAY OF DISCHARGE. DENIES ANY NEW COMPLAINTS. NO CHEST PAIN REPORTED. DISCHARGE MEDICATIONS: Same as admission medications. BRIEF HOSPITAL COURSE: Patient is an 88-year-old male with congestive heart failure, chronic respiratory failure, on home oxygen and deconditioning, presented to the hospital from [facility] with respiratory distress. Please refer to the history and physical for further details. The patient was admitted to the intermediate care unit with a diagnosis of acute on chronic hypoxic respiratory failure secondary to combined systolic and diastolic heart failure exacerbation. He showed good improvement with noninvasive positive-pressure ventilation along with diuretics. He was weaned off noninvasive positive-pressure ventilation and was transferred to the telemetry floor. The patient was evaluated by Cardiology, Dr. Diaz Roy. He also had aspiration pneumonitis. Modified barium swallow showed aspiration with thin consistency fluid. Due to overall poor prognosis, patient and the family decided to go home with hospice. DISCHARGE MEDICATIONS: Will be per Hospice. FINAL DIAGNOSES: 1. 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 2. Aspiration pneumonitis. 3. Aortic stenosis, status post recent transcatheter aortic valve replacement. 4. Acute kidney injury on chronic kidney disease, stage 2. 5. Chronic atrial fibrillation. 6. Hypertension. 7. Hyperlipidemia. 8. Gastroesophageal reflux disease. 9. Benign prostatic hypertrophy. 10. Chronic thrombocytopenia. 11. Hyperkalemia on admission, improved. 12. Elevated troponin secondary to demand ischemia. 13. Moderate protein-calorie malnutrition. 14. Stage II right heel pressure ulcers, present on admission. 15. Swallow dysfunction. Total time coordinating the discharge of this patient was 34 minutes. Job ID: [id number]
== END 2018-09-21 17:28 | disposition hospice, home (50) | DRG 291 ==
LOC: ERS 05:37 → IMCU/EMU 08:12 → 2NO 09-19 21:18
PROVIDERS: ADMIT Hospitalist; ATTEND Hospitalist
PROC: 5A09357 Assistance with Respiratory Ventilation, Less than 24 Consecutive Hours, Continuous Positive Airway Pressure (ICD-10-PCS; principal; 2018-09-17)
DX: I13.0 Hypertensive heart and chronic kidney disease with heart failure and stage 1 through stage 4 chronic kidney disease, or unspecified chronic kidney disease (principal); J69.0 Pneumonitis due to inhalation of food and vomit; J96.21 Acute and chronic respiratory failure with hypoxia; I50.43 Acute on chronic combined systolic (congestive) and diastolic (congestive) heart failure; N17.9 Acute kidney failure, unspecified; E44.0 Moderate protein-calorie malnutrition; J84.9 Interstitial pulmonary disease, unspecified; I24.8 Other forms of acute ischemic heart disease; Z68.1 Body mass index [BMI] 19.9 or less, adult; L89.612 Pressure ulcer of right heel, stage 2; D69.6 Thrombocytopenia, unspecified; E87.5 Hyperkalemia; I48.2 Chronic atrial fibrillation; R13.10 Dysphagia, unspecified; Z99.81 Dependence on supplemental oxygen; N18.2 Chronic kidney disease, stage 2 (mild); Z66 Do not resuscitate; E78.5 Hyperlipidemia, unspecified; K21.9 Gastro-esophageal reflux disease without esophagitis; N40.0 Benign prostatic hyperplasia without lower urinary tract symptoms; I25.10 Atherosclerotic heart disease of native coronary artery without angina pectoris; I08.0 Rheumatic disorders of both mitral and aortic valves; M19.90 Unspecified osteoarthritis, unspecified site; F17.290 Nicotine dependence, other tobacco product, uncomplicated; Z79.01 Long term (current) use of anticoagulants; Z79.82 Long term (current) use of aspirin; Z79.899 Other long term (current) drug therapy; Z95.5 Presence of coronary angioplasty implant and graft; Z95.2 Presence of prosthetic heart valve
CPT/HCPCS: 36415; 71045; 71250; 74230; 80053; 80162; 82553; 83735; 83880; 84100; 84484; 85025; 93005; 93798; 94640; 94660; 96374; J1940